=== PATIENT | male | born 1960 | race Caucasian/White ===

== ENCOUNTER 2024-03-30 10:54 | Observation (INO) ==
[2024-03-30] MEDS ORDERED: FLUTICASONE/VILANTEROL 100/25MCG 14 PUFFS/INHALER INH PRN (17:33)
[2024-03-30] MEDS ORDERED: ALBUTEROL HFA 8 GM INHALER INH PRN (17:33)
--- NOTE | 2024-03-30 18:06 | History & Physical Report ---
Date of Service March 30, 2024 Assessment & Plan (1) Recurrent fever: Plan: Admit to [facility] Currently stable nontoxic-appearing Patient was transferred to our facility from [facility] ED after he presented to their facility this a.m. (03/30/2024) due to recurrent fevers while still receiving IV vancomycin/Zosyn for recently VRE UTI Limited workup at the [place] ED today but reportedly his UA was concerning for recurrent UTI Patient was reportedly tested for COVID 19 at the [place] ED and was negative, will obtain for respiratory BioFire now as he has been at a SNF No recent respiratory or GI symptoms No signs of infected skin wound/cellulitis Patient had been improving clinically for his recently diagnosed VRE bacteremia during his admission at [facility] from /, ID had been involved during this admission and I recommended completing his course of Zosyn/vancomycin through 03/31/2024 and then reportedly completing a 7-day course of Macrobid. Confirmed with the patient's that the patient had been receiving his courses of vancomycin/Zosyn up until this a.m. when he started to have fevers Review of reports from the [place] ED prior to transfer shows the patient receiving a dose of Zosyn and vancomycin approximately 0730 this a.m. Will obtain baseline infectious workup at this time including CBC, CMP, lactate, repeat UA, repeat blood culture, PSA, PT/INR, chest x-ray, MRSA nasal swab, and full respiratory BioFire Will wait for initial workup to consider repeat imaging of his abdomen/pelvis as he is currently stable, nontoxic-appearing, and asymptomatic Will wait for CMP to result to confirm renal function is stable, if so, we will continue his course of Zosyn/vancomycin with last doses on 03/30/2024 Will start bilateral JULIA stockings for DVT prophylaxis until labs are back and we will then start chemical DVT prophylaxis Heart healthy/DM type II diet with aspiration precautions AM CBC, CMP, mag, PT/INR (2) BPH w urinary obs/LUTS: Plan: Status post Rezum procedure with Dr. Greene on 03/10/2024 Has required subsequent chronic indwelling Reed since Continue current Reed catheter and follow repeat UA with reflex urine culture/blood cultures Continue alpha Zosyn and finasteride Will wait for complete workup but can consult urology to continue following if needed during this admission (3) History of infection with vancomycin resistant Enterococcus (VRE): Plan: See scanned discharge summary of admission to [facility] from 03/23/2024 - 03/28/2024 for full details Patient has been on vancomycin/Zosyn with an end date of 03/31/2024 per infectious disease with plan to then complete a course of Macrobid for 7 days While patient's urine culture grew VRE, the discharge summary explains that this could have been colonization and that the patient was significantly improving on vancomycin/Zosyn which is why infectious disease recommended continue with his regimen Follow repeat infectious workup obtained at time of admission As long as admission labs allow, we will plan to continue vancomycin/Zosyn through 03/31/2024 Based on workup and clinical stability can then start p.o. Macrobid if this still seems reasonable (4) Stroke: Plan: Continue aspirin, Plavix, Will order [id number] mattress, heel precautions, acute 2-hour turn/position due to left-sided hemiparesis Will continue home 4 times daily baclofen with stat dose now as he missed his afternoon dose Continue gabapentin (5) COPD (chronic obstructive pulmonary disease): Plan: Currently stable on room air without signs of wheezing on exam Incentive spirometry, continue home albuterol and Trelegy Ellipta As needed O2 to keep SpO2 between 89-92%, patient and confirmed that the patient does have diagnosis of RHIANNON but has been unable to tolerate at bedtime CPAP in the past so may become hypoxic at night (6) Hypertension: Plan: Currently stable Continue home diltiazem (7) Seizure-like activity: Plan: Patient is confirmed that he has not had recent seizure-like activity Continue Lamictal (8) Diabetes mellitus type 2, controlled: Plan: Patient's explains that the patient's initial diagnosis for diabetes mellitus was done while he was on systemic steroids Has not required insulin and was reportedly taken off of metformin after he completed his course of steroids Patient remains on Jardiance for his heart per patient and For now monitor BSG ACHS, goal is [id number] Will start CF of 50 ACHS for now Adjust regimen as needed Plan The patient was discussed with Dr. Cruz at the time of the admission Admission and Anticipated Discharge Date Admission Date: March 30, 2024 History of Present Illness Chief Complaint: Recurrent fever Primary Care Provider: Celina Elizondo DO Gallegos is a 64-year-old male with a past medical history significant for COPD, prior CVA with left-sided hemiparesis, seizure disorder, DM type II, GERD, hypertension, hyperlipidemia, and BPH status post Rezum procedure with Dr. Greene on 03/10/2024 who was transferred to our facility from [facility] emergency department due to recurrent fever and UTI while on IV antibiotics at his SNF. Patient was recently admitted to [facility] from 03/23/24 - 03/28 04/05 after being discharged from the same hospital on 03/17/2024 due to sepsis/UTI after his recent Rezum procedure with Dr. Greene. During his most recent admission to [facility] the patient grew VRE on urine cultures with negative blood cultures. CT abdomen pelvis shows signs of possible sterile coral colitis but was otherwise negative for acute findings. CT of the chest was without acute changes. The patient had been started on Zosyn/vancomycin at the time of admission on 03/23/2024. Infectious disease was consulted and recommended continuing the patient on Zosyn/vancomycin through 03/31/2024 as he was reportedly improving on this combination. The patient continued to improve while on Zosyn/vancomycin and was discharged to [facility] on 03/28/2024. Infectious disease reportedly recommended the patient completed 7-day course of Macrobid after he completed his course of IV antibiotics. He presented back to the [facility] emergency department on 03/30/2024 from his SNF due to concerns for recurrent fevers. Per the transfer documentation, patient was noted to have signs of a recurrent UTI. Admission the patient was lying in bed no acute distress at this time sitting bedside, history is obtained from both. His explains that the patient has continued his IV antibiotics at SNF. Early this a.m. he had multiple fevers ranging from [id number] which is why he was sent to the ED. When asked, patient states that he has otherwise felt fine. Denies recent headaches, chest pain, shortness of breath, cough, abdominal pain, nausea/vomiting, diarrhea. When asked, his states that the patient has 2 small areas of skin breakdown on his sacrum but is otherwise without signs of recent wounds. Patient missed the majority of his a.m. and after medications but his was able to get him his noon dose of diltiazem and gabapentin. We discussed CODE STATUS, the patient is a full code and his is his primary decision-maker if he cannot make decisions himself. Please refer to Dr. Cruz's attestation for any changes to treatment plan Allergies Allergy/AdvReac Type Severity Reaction Status Date / Time Sulfa (Sulfonamide Allergy Unknown Hives Verified 03/10/24 10:17 Antibiotics) Home Medications Medication Instructions Recorded Confirmed Type acetaminophen 325 mg capsule 325 mg PO QID PRN Pain 11/20/23 03/30/24 History (Tylenol) albuterol sulfate 90 mcg/actuation 1 inh inhalation QID PRN SOB 11/20/23 03/30/24 History aerosol inhaler (Ventolin HFA) alfuzosin 10 mg tablet,extended 10 mg PO QAM 11/20/23 03/30/24 History release 24 hr ascorbic acid (vitamin C) 250 mg 250 mg PO QPM 11/20/23 03/30/24 History tablet aspirin 81 mg tablet,delayed 81 mg PO QAM 11/20/23 03/30/24 History release (Adult Aspirin Regimen) atorvastatin 40 mg tablet 40 mg PO QPM 11/20/23 03/30/24 History azelastine 137 mcg (0.1 %) nasal 1 spray intranasal BID 11/20/23 03/30/24 History spray baclofen 10 mg tablet 10 mg PO QID 11/20/23 03/30/24 History cholecalciferol (vitamin D3) 125 125 mcg PO QPM 11/20/23 03/30/24 History mcg (5,000 unit) capsule clopidogrel 75 mg tablet (Plavix) 75 mg PO QPM 11/20/23 03/30/24 History diltiazem HCl 30 mg tablet 30 mg PO QID 11/20/23 03/30/24 History empagliflozin 10 mg tablet 10 mg PO QAM heart 11/20/23 03/30/24 History (Jardiance) ferrous gluconate 324 mg (37.5 mg 324 mg PO Q2D 11/20/23 03/30/24 History iron) tablet finasteride 5 mg tablet 5 mg PO QAM 11/20/23 03/30/24 History fluticasone furoate 100 1 inh inhalation UD PRN SOB 11/20/23 03/30/24 History mcg-vilanterol 25 mcg/dose inhalation powder (Breo Ellipta) fluticasone propionate 50 1 spray intranasal DAILY 11/20/23 03/30/24 History mcg/actuation nasal spray,suspension folic acid 1 mg tablet 1 mg PO QPM 11/20/23 03/30/24 History ipratropium bromide 21 mcg (0.03 2 spray intranasal BID PRN 11/20/23 03/30/24 History %) nasal spray Congestion ketoconazole 2 % topical cream 1 applic topical DAILY PRN Skin 11/20/23 03/30/24 History Irritation loratadine 10 mg tablet (Claritin) 10 mg PO QAM 11/20/23 03/30/24 History melatonin 5 mg capsule 5 mg PO HS 11/20/23 03/30/24 History multivitamin 1 tab PO QAM 11/20/23 03/30/24 History pantoprazole 40 mg tablet,delayed 40 mg PO QAM 11/20/23 03/30/24 History release ropinirole 0.5 mg tablet 1 mg PO HS 11/20/23 03/30/24 History thiamine HCl (vitamin B1) 50 mg 50 mg PO HS 11/20/23 03/30/24 History tablet (Vitamin B-1) famotidine 40 mg tablet 40 mg PO HS 03/03/24 03/30/24 History formoterol fumarate 20 mcg/2 mL 2 ml inhalation QAM 03/03/24 03/30/24 History solution for nebulization gabapentin 400 mg capsule 400 mg PO UD 03/03/24 03/30/24 History lamotrigine 25 mg tablet 50 mg PO BID 03/03/24 03/30/24 History magnesium 250 mg tablet 250 mg PO QPM 03/03/24 03/30/24 History potassium chloride 30 mEq/15 mL 30 meq PO QAM 03/03/24 03/30/24 History oral liquid oxybutynin chloride 5 mg tablet 5 mg PO Q8H PRN bladder spasms #20 03/10/24 03/30/24 Rx tabs phenazopyridine 200 mg tablet 200 mg PO Q8H PRN pain #10 tabs 03/10/24 03/30/24 Rx (Pyridium) Past Med/Surg History Problem List (Updated 03/30/24 @ 18:41 by Delvin Diop PA-C) History of infection with vancomycin resistant Enterococcus (VRE) Recurrent fever Dysuria BPH w urinary obs/LUTS Medical History (Updated 03/30/24 @ 18:41 by Delvin Diop PA-C) VRE bacteremia Diabetes mellitus type 2, controlled Seizure-like activity reason for lamictal, occurred 10/11/22 first time, "seems to get about every 3 months, most recent 01/07/24 that is when he was put on the lamictal"; f/u neuro/stroke team at [facility] every 4-5 months Neuropathy Chronic anticoagulation RLS (restless legs syndrome) Hypertension Hx of difficult intubation "many years ago at [facility] with 1 of his shoulder surgeries, has had no trouble since then" BPH w urinary obs/LUTS GERD (gastroesophageal reflux disease) getting EGD 03/07/24, at [facility] Hx of polycythemia vera ~2013, "had procedure to water down his blood" Stroke 04/01/22, dysphagia, cannot move left arm, left leg weakness, diaphragm weakness, loss vision left eye COPD (chronic obstructive pulmonary disease) Surgical History Hx of brain surgery 2021, craniectomy, formerly [facility] Hx of craniotomy 2021, [facility] Hx of colonoscopy Hx of arthroscopy of shoulder x2, left Hx of rotator cuff surgery left, open procedure Hx of cervical spine surgery in the early ; ROM "is a little limited since stroke but was not limited prior to stroke from this sx" Hx of lumbosacral spine surgery late , L5 Hx of tonsillectomy Social History Smoking Status: Former smoker Second Hand Exposure: No; Do You Dip or Chew Tobacco: No; Tobacco Cessation Education Requested by Patient: No Hx Alcohol Use: No Hx Substance Use: No Preferred Language: Croatian Communication Ability: Effective Visual Impairment: Limited Manager Hris Required: No Beliefs That Will Affect Care: None Current Living Situation: Rehab Current Living Situation Comment: Was from home living with then had the REZUM procedure then to Rehab Other Information That Helps Us Care for You: No Feels Safe at Home: Yes Safety Concerns: Feels Safe At This Time Assistive Devices: Cane, CPAP and Wheelchair Assistive Devices Comment: Unable to tolerate CPAP Physical Exam 2 Constitutional: Physical Exam: General: In no acute distress, stated age, chronically ill-appearing but nontoxic HEENT: Previous traumatic injury site to the right skull without signs of acute trauma, no scleral icterus, pupils around round, symmetrical, and reactive to light, dry mucus membranes, trachea midline, no thyromegaly Chest/Pulm: No respiratory distress, symmetrical chest expansion, clear breath sounds throughout Cardiac: RRR, no murmurs noted Abdomen: Negative for ascites and bruising, normoactive bowel sounds, soft, non-tender to palpation throughout : Reed catheter is currently in place and draining clear, yellow urine Musculoskeletal: No acute trauma on exam, baseline left-sided from previous CVA Extremities: Radial, dorsalis pedis, and posterior tibial pulses are intact and symmetrical, no edema noted in the BL LE's Skin: See attached picture below for details of pressure ulcers of the buttocks Neuro: Alert and oriented to person, place, month, year, and president, baseline left hemiparesis noted, no tremors noted Psych: No acute distress, calm and cooperative during the exam Results & Data Results & Data Vital Signs (Past 12 Hours) Vital Signs Temp Pulse Resp BP Pulse Ox O2 Del Method 03/30/24 16:46 36.8 C 78 20 149/74 H 95 Room Air Laboratory Results Abnormal lab results 03/30/24 Range/Units 17:37 RBC 4.62 L (4.70-6.10) M/uL Lymph # (Auto) 0.79 L (1.20-3.40) K/uL [place] # (Auto) 0.80 H (0.11-0.59) K/uL Eos # (Auto) 0.59 H (0.00-0.50) K/uL Code Status & VTE Plan Code Status Full code VTE Prophylaxis Plan VTE Prophylaxis will be ordered: Yes Supervising Physician Co-Signing Physician Notes I personally saw and examined the patient. I verified all youngblood points and agree with Delvin Diop PA-C with the following exceptions and/or additions: 64 year old male direct transfer for recurrent fevers. Currently on Vancomycin and Zosyn for VRE and presumably something else in urine culture although not currently known as unclear why he was discharged on vancomycin but case was discussed with ID per discharge summary. The patient has no current acute complaints when seen. O/E HS RRR, no murmurs, Chest CTAB, Abdomen SNT, no CVA tenderness, minimal movements on LLE and no movement of LUE due to prior stroke A/P Recurrent fevers - will continue vancomycin + Zosyn for now although unclear why he is on vancomycin with urine culture growing VRE and no other culture mentioned on discharge summary to warrant vancomycin. Microbiology results requested from transferring institution. Repeat urine and blood cultures ordered. Otherwise as above PG Care Time/CCT Total # of Minutes Spent Total Time Spent with Patient: Total time spent is greater than 50% in coordination of care (as documented) at patient's floor/unit and/or counseling patient: [place] [address] INT INP/OBS CARE 3/75MIN Patient Type New Medical Decision Making High Complexity Diagnoses Recurrent fever A68.9 BPH w urinary obs/LUTS N40.1; N13.8 History of infection with vancomycin resistant Enterococcus (VRE) Z86.19 Stroke I63.9 COPD (chronic obstructive pulmonary disease) J44.9 Hypertension I10 Seizure-like activity R56.9 Diabetes mellitus type 2, controlled E11.9
[2024-03-30] MEDS ORDERED: GLUCOSE 40% GEL 15 GM TUBE PO PRN (18:11)
[2024-03-30] MEDS ORDERED: CARBOHYDRATES FOR HYPOGLYCEMIA PO PRN (18:11)
[2024-03-30] MEDS ORDERED: GLUCOSE 10 TAB/TUBE PO PRN (18:11)
[2024-03-30] MEDS ORDERED: DEXTROSE 50% 50 ML SYRINGE IV PRN (18:11)
[2024-03-30] MEDS ORDERED: GLUCAGON FOR INJ 1 MG VIAL SQ PRN (18:11)
[2024-03-30 18:13] LABS: Basophils # (auto) 0.04 K/uL (0.00-0.20); Basophils % (auto) 0.7 %; Eosinophils # (auto) 0.59 K/uL (0.00-0.50); Eosinophils % (auto) 9.7 %; Hematocrit (blood only) 42.1 % (42.0-52.0); Hemoglobin 14.1 g/dl (14.0-18.0); Immature Granulocytes # (auto) 0.08 K/uL (0.01-0.20); Immature Granulocytes % (auto) 1.3 %; Lymphocytes # (auto) 0.79 K/uL (1.20-3.40); Mean Corpuscular Hemoglobin 30.5 pg (25.0-34.0); Mean Corpuscular Hgb Conc 33.5 g/dL (32.0-36.0); Mean Corpuscular Volume 91.1 fL (80.0-100.0); Mean Platelet Volume 10.2 fL (9.4-12.4); Monocytes % (auto) 13.1 %; Neutrophils % (auto) 62.2 %; Platelet Count 180 K/uL (130-400); RDW Coefficient of Variation 13.5 % (11.5-14.5); RDW Standard Deviation 44.8 fL (36.4-46.3); Red Blood Count 4.62 M/uL (4.70-6.10)
[2024-03-30 18:30] LABS: Albumin Globulin Ratio 1.5 (0.9-2); BUN Creatinine Ratio 14.3 (10-20); Calcium 9.2 mg/dl (8.6-10.3); Creatinine Clr Calc Pharmacy 93.9 ml/min; Est GFR (African American) 103.6 ml/min; Est GFR (Non-African American) 89.4 ml/min; Globulin 2.7 gm/dl (2.5-4.0); Potassium 3.5 mmol/L (3.5-5.1); Total Protein 6.7 gm/dl (6.0-8.3)
[2024-03-30 18:42] LABS: Prostate SpecificAg Diagnostic 0.133 ng/ml (0-4)
[2024-03-30 18:44] LABS: INR 1.1 (0.9-1.1); Prothrombin Time 11.8 Seconds (9.0-12.0)
[2024-03-30 19:00] LABS: Appearance Urine Clear (Clear); Bilirubin Urine Negative (Negative); Blood Urine 3+ (Negative); Color Urine Yellow; Glucose Urine UA 3+ (Negative); Ketones Urine Negative (Negative); Leukocyte Esterase Urine Trace (Negative); Nitrite Urine Negative (Negative); Protein Urine 1+ (Negative); Specific Gravity Urine >= 1.030 (1.000-1.030); Urobilinogen Urine Negative (Negative); pH Urine 5.5 (4.5-7.5)
[2024-03-30 19:10] LABS: Bacteria Urine 1+ (None Seen); Epithelial Cell Urine 0-2 /hpf (0-2)
[2024-03-30 19:11] LABS: Hyaline Casts Urine Present /lpf (None Presnt); Mucus Urine Present (None Prsent)
[2024-03-30] MEDS: lamoTRIgine 25 MG TAB PO STA (20:21)
[2024-03-30] MEDS: BACLOFEN 10 MG TAB PO SCH (20:22)
[2024-03-30] MEDS: GABAPENTIN 600 MG TAB PO SCH (20:22)
[2024-03-30] MEDS: CHOLECALCIFEROL 125 MCG (5,000 UNITS) TAB PO SCH (20:22)
[2024-03-30] MEDS: BACLOFEN 10 MG TAB PO STA (20:22)
[2024-03-30] MEDS: rOPINIRole HCL 1 MG TABLET PO SCH (20:22)
[2024-03-30] MEDS: CLOPIDOGREL BISULFATE 75 MG TAB PO SCH (20:23)
[2024-03-30] MEDS: ASCORBIC ACID 500 MG TAB PO SCH (20:23)
[2024-03-30] MEDS: MELATONIN 3 MG TAB PO SCH (20:24)
[2024-03-30] MEDS: ASPIRIN 81 MG CHEW PO STA (20:24)
[2024-03-30] MEDS: FOLIC ACID 1 MG TAB PO SCH (20:24)
[2024-03-30] MEDS: dilTIAZem HCL 30 MG TAB PO SCH (20:24)
[2024-03-30] MEDS: FAMOTIDINE 40 MG TABLET PO SCH (20:24)
[2024-03-30] MEDS: ATORVASTATIN 40 MG TAB PO SCH (20:25)
[2024-03-30] MEDS ORDERED: VANCOMYCIN CONSULT ACTIVE PRN (20:38)
[2024-03-30] MEDS ORDERED: lamoTRIgine 25 MG TAB PO SCH (21:00)
[2024-03-30 21:27] LABS: Adenovirus PCR Not Detected (NotDetected); Bordetella parapertussis PCR Not Detected (NotDetected); Bordetella pertussis PCR Not Detected (NotDetected); Chlamydia pneumoniae PCR Not Detected (NotDetected); Coronavirus 229E PCR Not Detected (NotDetected); Coronavirus CoV-2 (COVID19)PCR Not Detected (NotDetected); Coronavirus HKU1 PCR Not Detected (NotDetected); Coronavirus NL63 PCR Not Detected (NotDetected); Coronavirus OC43PCR Not Detected (NotDetected); Human Metapneumovirus PCR Not Detected (NotDetected); Influenza A PCR Not Detected (NotDetected); Influenza B PCR Not Detected (NotDetected); Mycoplasma pneumoniae PCR Not Detected (NotDetected); Parainfluenza Virus 1 PCR Not Detected (NotDetected); Parainfluenza Virus 2 PCR Not Detected (NotDetected); Parainfluenza Virus 3 PCR Not Detected (NotDetected); Parainfluenza Virus 4 PCR Not Detected (NotDetected); Respiratory Syncytial VirusPCR Not Detected (NotDetected); Rhinovirus/Enterovirus PCR Not Detected (NotDetected)
[2024-03-30] MEDS: INSULIN ASPART PER UNIT CHARGE SC SCH (22:01)
[2024-03-30] MEDS: PIPERACILLIN/TAZOBACTAM 4.5 GM/100 ML BAG IV ONE (22:46)
[2024-03-30] MEDS: VANCOMYCIN HCL 2,000 MG in SODIUM CHLORIDE 0.9% 500 ML IV ONE (23:19)
[2024-03-31] MEDS: PIPERACILLIN/TAZOBACTAM 4.5 GM/100 ML BAG IV SCH (04:22)
[2024-03-31 05:56] LABS: Basophils # (auto) 0.03 K/uL (0.00-0.20); Basophils % (auto) 0.4 %; Eosinophils # (auto) 0.36 K/uL (0.00-0.50); Eosinophils % (auto) 4.4 %; Hemoglobin 14.3 g/dl (14.0-18.0); Immature Granulocytes # (auto) 0.05 K/uL (0.01-0.20); Immature Granulocytes % (auto) 0.6 %; Lymphocytes # (auto) 0.44 K/uL (1.20-3.40); Lymphocytes % (auto) 5.3 %; Mean Corpuscular Hemoglobin 31.1 pg (25.0-34.0); Mean Corpuscular Hgb Conc 34.9 g/dL (32.0-36.0); Mean Corpuscular Volume 89.1 fL (80.0-100.0); Mean Platelet Volume 10.2 fL (9.4-12.4); Monocytes # (auto) 0.53 K/uL (0.11-0.59); Monocytes % (auto) 6.4 %; Neutrophils # (auto) 6.86 K/uL (1.40-6.50); Neutrophils % (auto) 82.9 %; Platelet Count 156 K/uL (130-400); RDW Coefficient of Variation 13.2 % (11.5-14.5); White Blood Count 8.27 K/ul (4.8-10.8)
[2024-03-31 06:08] LABS: Albumin Globulin Ratio 1.4 (0.9-2); Albumin Level 3.7 gm/dl (3.4-5.0); BUN Creatinine Ratio 10.1 (10-20); Bilirubin,Total 1.2 mg/dl (0.2-1.0); Calcium 8.6 mg/dl (8.6-10.3); Creatinine Clr Calc Pharmacy 86.3 ml/min; Est GFR (African American) 93.6 ml/min; Est GFR (Non-African American) 80.7 ml/min; Globulin 2.7 gm/dl (2.5-4.0); Magnesium 1.7 mg/dl (1.7-2.4); Potassium 3.4 mmol/L (3.5-5.1); Total Protein 6.4 gm/dl (6.0-8.3)
[2024-03-31 06:22] LABS: INR 1.2 (0.9-1.1); Prothrombin Time 12.4 Seconds (9.0-12.0)
--- NOTE | 2024-03-31 07:07 | XRay Report ---
XR chest 1V portable CLINICAL HISTORY: Fevers. COMPARISON STUDY: Chest radiograph performed earlier today. FINDINGS: Postoperative findings within the cervical spine are incidentally noted. Lung volumes are m ildly diminished. Mild bibasilar opacities have developed. There is mild interstitial thickening. Pat ient is rotated. No pleural effusion or pneumothorax. IMPRESSION: 1. Bibasilar opacities which could reflect pneumonia or atelectasis. 2. Pleural vascular congestion with suspected mild pulmonary edema. ACT 112: Negative or not required by law. Electronically signed by: Ranulfo Soto M.D. 03/31/2024 7:06 AM
[2024-03-31] MEDS: ACETAMINOPHEN 325 MG TAB PO PRN (07:26)
[2024-03-31] MEDS: ASCORBIC ACID 500 MG TAB PO SCH (08:09)
[2024-03-31] MEDS: PANTOprazole 40 MG TAB PO SCH (08:10)
[2024-03-31] MEDS: GABAPENTIN 400 MG CAP PO SCH (08:10)
[2024-03-31] MEDS: TAMSULOSIN HCL 0.4 MG CAP PO SCH (08:10)
[2024-03-31] MEDS: FERROUS GLUCONATE 324 MG TAB PO SCH (08:11)
[2024-03-31] MEDS: FINASTERIDE 5 MG TAB PO SCH (08:12)
[2024-03-31] MEDS ORDERED: EMPAGLIFLOZIN 10 MG TAB PO SCH (09:00)
--- NOTE | 2024-03-31 09:21 | Hospitalist Progress Note ---
Date of Service March 31, 2024 Assessment & Plan (1) Recurrent fever: Plan: 64 y/o who underwent REZUM procedure for BPH with LUTS on 03/[address] Greene. Following that he has had recurrent fevers treated at [facility]. This started 03/16 with fevers chills and malaise, temp reported up to [address] max [address]BC 18. CT chest/abdomen/pelvis notable for cystitis, postoperative changes, stercoral colitis. He had urine culture positive for VRE sensitive to macrobid. He was treated for UTI with 7 days pip-tazo and vancomycin (started 03/24 so 7th day would have been today) and seemed to improve. ID consulted and since he was improving and VRE might have been colonizer rather than pathogen, recommended finishing the 7d course of IV then 7d oral macrobid. He was discharged to SNF. Yesterday presented again to local ED with fever 101.6, flu/covid CXR neg, W7, BMP unremarkable, UA with pyuria did have tapia in place. On transfer here, similar data and resp biofire negative. Continued on pip-tazo and vancomycin at time of admission. febrile overnight and Tmax today around noon was 38.2. remains nontoxic with respect to labs and vital signs however, normal mental status Suspect untreated VRE could be the issue (vs non-urological source of fever - consider aspiration pneumonitis, drug fever) -stop pip-tazo and vancomycin since these do not seem to be treating anything specific at this time -start daptomycin to cover VRE. discussed with clinical pharmacist. hold statin while on daptomycin -await repeat blood and urine cultures (correction to H&P - did NOT have VRE bacteremia, previous blood cultures have been negative) -reviewed outside records - discharge summary from [facility] -discussed with Dr. Greene - will see - urine culture pinpoint growth, blood culture pending. Will repeat blood culture if febrile at greater than 24 hours after previous culture (2) BPH w urinary obs/LUTS: Plan: Status post Rezum procedure with Dr. Greene on 03/10/2024 Has required tapia since Continue alfluzosin and finasteride Unclear when he had a voiding trial, but would be appropriate to do soon (3) History of infection with vancomycin resistant Enterococcus (VRE): Plan: see above (4) Stroke: Plan: History of stroke and crani with L hemiparesis - neurologically is at baseline Continue aspirin, Plavix, stain held while on dapto ow-air-loss mattress, heel precautions, acute 2-hour turn/position due to left-sided hemiparesis continue baclofen Continue gabapentin (5) COPD (chronic obstructive pulmonary disease): Plan: Currently stable on room air without signs of wheezing on exam Incentive spirometry, continue home albuterol and Trelegy Ellipta As needed O2 to keep SpO2 between 89-92%, patient and confirmed that the patient does have diagnosis of RHIANNON but has been unable to tolerate at bedtime CPAP in the past so may become hypoxic at night (6) Hypertension: Plan: Currently stable Continue home diltiazem (7) Seizure-like activity: Plan: Patient is confirmed that he has not had recent seizure-like activity Continue Lamictal (8) Diabetes mellitus type 2, controlled: Plan: Patient's explains that the patient's initial diagnosis for diabetes mellitus was done while he was on systemic steroids Has not required insulin and was reportedly taken off of metformin after he completed his course of steroids Patient remains on Jardiance for his heart per patient and continue premeal insulin PRN blood glucose at goal 03/31 all checks less than 150 Plan DVT prophylaxis - already on aspirin and Plavix so will use low-dose subcu heparin twice daily PT and OT eval's. Recently at [facility] I updated his at bedside today Admission and Anticipated Discharge Date Admission Date: March 30, 2024 Subjective El is definitely feeling fatigued and having sweats and chills today, he has some redness of his face and upper trunk slight very faint macular rash over shoulders he denied any abdominal pain or bladder pain except when the Tapia is being tugged occasionally he did have some tenderness with deep palpation in the left lower quadrant no coughing or shortness of breath, no chest pain no joint problems usually can flex his left leg but left upper extremity has no strength, strength is currently at his baseline Physical Exam 2 Physical Exam: PHYSICAL EXAMINATION Last 24h vital signs reviewed, see documentation in flowsheet General: lying in bed mildly ill-appearing HEENT: Normocephalic, atraumatic, pupils round and equal, sclerae anicteric, no conjunctival injection, moist mucus membranes. face is a bit alvin/flushed, some mild sweating currently Lungs: Normal respiratory effort. Clear to auscultation bilaterally. No RRW Heart: Regular rate and rhythm, no murmurs. No JVD Abdomen: Soft, nondistended. mildly tender to deep palpation left lower quadrant without rebound rigidity or guarding Bowel sounds present. Extremities: Warm, dry, well-perfused. No extremity edema. : Tapia catheter draining clear yellow urine Neuro: Alert and oriented x 4, face symmetric, left-sided weakness with 0 out of 5 strength left upper extremity, 34 out of 5 strength left lower extremity Psych: Normal affect and behavior Results & Data Results & Data Vital Signs (Past 12 Hours) Vital Signs Temp Pulse Resp BP Pulse Ox O2 Del Method 03/31/24 07:39 37 C 03/31/24 07:11 38.1 C H 106 H 18 127/70 91 Room Air 03/31/24 04:18 36.8 C Laboratory Results 03/31/24 05:34 03/31/24 05:34 respiratory bio fire was negative PSA was low MRSA nares was negative INR was 1.2 PG Care Time/CCT Total # of Minutes Spent Total Time Spent with Patient: Total time spent is greater than 50% in coordination of care (as documented) at patient's floor/unit and/or counseling patient: Coding Level of Care Code 73740 SUB INP/OBS CARE 3/50MIN Diagnoses Recurrent fever A68.9 BPH w urinary obs/LUTS N40.1; N13.8 History of infection with vancomycin resistant Enterococcus (VRE) Z86.19 Stroke I63.9 COPD (chronic obstructive pulmonary disease) J44.9 Hypertension I10 Seizure-like activity R56.9 Diabetes mellitus type 2, controlled E11.9
[2024-03-31] MEDS: VANCOMYCIN HCL 1,250 MG in SODIUM CHLORIDE 0.9% 250 ML IV SCH (09:29)
[2024-03-31] MEDS: ASPIRIN 81 MG ECTAB PO SCH (10:09)
[2024-03-31] MEDS: DAPTOmycin 650 MG in SYRINGE 0 ML IV SCH (10:47)
[2024-03-31] MEDS: LACTATED RINGER'S 1,000 ML IV SCH (10:56)
--- NOTE | 2024-03-31 12:07 | Electrocardiogram Report ---
Test Reason : Blood Pressure : */* mmHG Vent. Rate : 82 BPM Atrial Rate : 82 BPM P-R Int : 176 ms QRS Dur : 94 ms QT Int : 386 ms P-R-T Axes : 39 6 44 degrees QTcB Int : 450 ms Normal sinus rhythm Low voltage QRS Borderline ECG No previous ECGs available Confirmed by Enrike Mcnamara ([id number]) on 03/31/2024 12:07:09 PM Referred By: Breanna Syed Confirmed By: Enrike Mcnamara
--- NOTE | 2024-03-31 16:45 | Urology Consultation ---
<Statement entered by Crow Blancas MD - 04/01/24 07:36> I have discussed Mr. Lopez's case with LISHA Treadwell and agree with the above documentation. He remains hemodynamically stable. Would continue antibiotics. Can tailor antibiotic coverage as culture data becomes available. No plan for surgical intervention at this time. -Crow Blancas MD. Date of Consultation March 31, 2024 Assessment & Plan (1) Recurrent fever: (2) BPH w urinary obs/LUTS: Plan 64yo/M who is s/p Rezum on 03/10/24 w/Dr. Greene who was transferred to our facility from [facility] ED due to recurrent fevers while still receiving IV vancomycin/Zosyn for recent VRE UTI. Febrile today (Tmax 38.2C). Normotensive and not tachycardic at present. Labs reviewed- WBC 8.27, hemoglobin 14.3, creatinine 0.99 Urine and blood culture pending. Reed intact and draining yellow urine. CTAP 03/23/24 report from outside facility reviewed - Mild thickening of urinary bladder. 2 small air foci in its lumen, possible cystitis. No hydronephrosis. Prostate appeared unremarkable. No indication for urological intervention at this time. Antibiotics changed to Daptomycin for VRE coverage. Await repeat cultures. Continue supportive care. Maintain Reed catheter for now. Continue Flomax and Finasteride. If no improvement, can consider repeat imaging. Urology will follow. Please call with any questions/concerns. History of Present Illness Attending Physician: Breanna Syed MD History of Present Illness 64-year-old male with a hx of BPH s/p Rezum procedure with Dr. Greene on 03/10/2024 who was transferred to our facility from [facility] ED due to recurrent fever and UTI while on IV antibiotics at his SNF. Recent history obtained from chart review- Patient was admitted to [facility] from 03/23/24 - 03/28 04/05 due to sepsis/UTI after his recent Rezum procedure with Dr. Greene. During his most recent admission to [facility] the patient grew VRE on urine cultures with negative blood cultures. CT abdomen pelvis shows signs of possible stercoral colitis and cystitis but was otherwise negative for acute findings. The patient had been started on Zosyn/vancomycin at the time of admission on 03/23/2024. Infectious disease was consulted and recommended continuing the patient on Zosyn/vancomycin through 03/31/2024 as he was reportedly improving on this combination. The patient continued to improve while on Zosyn/vancomycin and was discharged to [facility] on 03/28/2024. Infectious disease reportedly recommended the patient completed 7-day course of Macrobid after he completed his course of IV antibiotics. He returned to [facility] emergency department on 03/30/2024 from his SNF due to concerns for recurrent fevers while on IV antibiotics. He was then transferred to our facility on 03/30/24 and is admitted to medicine service. Patient was seen at bedside today. Awake and resting in bed on arrival. No acute distress. at bedside. Patient/ report fevers and fatigue today. Reed intact and draining yellow urine. Allergies Allergy/AdvReac Type Severity Reaction Status Date / Time Sulfa (Sulfonamide Allergy Unknown Hives Verified 03/10/24 10:17 Antibiotics) Home Medications Medication Instructions Recorded Confirmed Type acetaminophen 325 mg capsule 325 mg PO QID PRN Pain 11/20/23 03/30/24 History (Tylenol) albuterol sulfate 90 mcg/actuation 1 inh inhalation QID PRN SOB 11/20/23 03/30/24 History aerosol inhaler (Ventolin HFA) alfuzosin 10 mg tablet,extended 10 mg PO QAM 11/20/23 03/30/24 History release 24 hr ascorbic acid (vitamin C) 250 mg 250 mg PO QPM 11/20/23 03/30/24 History tablet aspirin 81 mg tablet,delayed 81 mg PO QAM 11/20/23 03/30/24 History release (Adult Aspirin Regimen) atorvastatin 40 mg tablet 40 mg PO QPM 11/20/23 03/30/24 History azelastine 137 mcg (0.1 %) nasal 1 spray intranasal BID 11/20/23 03/30/24 His tory spray baclofen 10 mg tablet 10 mg PO QID 11/20/23 03/30/24 History cholecalciferol (vitamin D3) 125 125 mcg PO QPM 11/20/23 03/30/24 History mcg (5,000 unit) capsule clopidogrel 75 mg tablet (Plavix) 75 mg PO QPM 11/20/23 03/30/24 History diltiazem HCl 30 mg tablet 30 mg PO QID 11/20/23 03/30/24 History empagliflozin 10 mg tablet 10 mg PO QAM heart 11/20/23 03/30/24 History (Jardiance) ferrous gluconate 324 mg (37.5 mg 324 mg PO Q2D 11/20/23 03/30/24 History iron) tablet finasteride 5 mg tablet 5 mg PO QAM 11/20/23 03/30/24 History fluticasone furoate 100 1 inh inhalation UD PRN SOB 11/20/23 03/30/24 History mcg-vilanterol 25 mcg/dose inhalation powder (Breo Ellipta) fluticasone propionate 50 1 spray intranasal DAILY 11/20/23 03/30/24 History mcg/actuation nasal spray,suspension folic acid 1 mg tablet 1 mg PO QPM 11/20/23 03/30/24 History ipratropium bromide 21 mcg (0.03 2 spray intranasal BID PRN 11/20/23 03/30/24 History %) nasal spray Congestion ketoconazole 2 % topical cream 1 applic topical DAILY PRN Skin 11/20/23 03/30/24 History Irritation loratadine 10 mg tablet (Claritin) 10 mg PO QAM 11/20/23 03/30/24 History melatonin 5 mg capsule 5 mg PO HS 11/20/23 03/30/24 History multivitamin 1 tab PO QAM 11/20/23 03/30/24 History pantoprazole 40 mg tablet,delayed 40 mg PO QAM 11/20/23 03/30/24 History release ropinirole 0.5 mg tablet 1 mg PO HS 11/20/23 03/30/24 History thiamine HCl (vitamin B1) 50 mg 50 mg PO HS 11/20/23 03/30/24 History tablet (Vitamin B-1) famotidine 40 mg tablet 40 mg PO HS 03/03/24 03/30/24 History formoterol fumarate 20 mcg/2 mL 2 ml inhalation QAM 03/03/24 03/30/24 History solution for nebulization gabapentin 400 mg capsule 400 mg PO UD 03/03/24 03/30/24 History lamotrigine 25 mg tablet 50 mg PO BID 03/03/24 03/30/24 History magnesium 250 mg tablet 250 mg PO QPM 03/03/24 03/30/24 History potassium chloride 30 mEq/15 mL 30 meq PO QAM 03/03/24 03/30/24 History oral liquid oxybutynin chloride 5 mg tablet 5 mg PO Q8H PRN bladder spasms #20 03/10/24 03/30/24 Rx tabs phenazopyridine 200 mg tablet 200 mg PO Q8H PRN pain #10 tabs 03/10/24 03/30/24 Rx (Pyridium) Patient History Medical History (Updated 03/30/24 @ 18:41 by Delvin Diop PA-C) VRE bacteremia Diabetes mellitus type 2, controlled Seizure-like activity reason for lamictal, occurred 10/11/22 first time, "seems to get about every 3 months, most recent 01/07/24 that is when he was put on the lamictal"; f/u neuro/stroke team at [facility] every 4-5 months Neuropathy Chronic anticoagulation RLS (restless legs syndrome) Hypertension Hx of difficult intubation "many years ago at [facility] with 1 of his shoulder surgeries, has had no trouble since then" BPH w urinary obs/LUTS GERD (gastroesophageal reflux disease) getting EGD 03/07/24, at [facility] Hx of polycythemia vera ~2013, "had procedure to water down his blood" Stroke 04/01/22, dysphagia, cannot move left arm, left leg weakness, diaphragm weakness, loss vision left eye COPD (chronic obstructive pulmonary disease) Surgical History Hx of brain surgery 2021, craniectomy, [facility] Hx of craniotomy 2021, [facility] Hx of colonoscopy Hx of arthroscopy of shoulder x2, left Hx of rotator cuff surgery left, open procedure Hx of cervical spine surgery in the early s; ROM "is a little limited since stroke but was not limited prior to stroke from this sx" Hx of lumbosacral spine surgery late s, L5 Hx of tonsillectomy Social History Smoking Status: Former smoker Second Hand Exposure: No; Do You Dip or Chew Tobacco: No; Tobacco Cessation Education Requested by Patient: No Hx Alcohol Use: No Hx Substance Use: No Preferred Language: Urdu Communication Ability: Effective Visual Impairment: Limited Repaire[employer] Car Required: No Beliefs That Will Affect Care: None Current Living Situation: Rehab Current Living Situation Comment: Was from home living with then had the REZUM procedure then to Rehab Other Information That Helps Us Care for You: No Feels Safe at Home: Yes Safety Concerns: Feels Safe At This Time Assistive Devices: Stair Lift, Walker and Wheelchair Assistive Devices Comment: Unable to tolerate CPAP Review of Systems Review of Systems: All systems reviewed & are unremarkable except as noted in HPI & below Physical Exam Constitutional: + ill appearing; no acute distress Neck: normal visual inspection Respiratory: no respiratory distress and no labored breathing Musculoskeletal: Head/Neck/Chest: normocephalic Neurologic: awake Psychiatric: Orientation: alert and cooperative Genitourinary: Reed intact Results & Data Vital Signs (Past 12 Hours) Vital Signs Temp Pulse Resp BP Pulse Ox O2 Del Method 03/31/24 15:00 37.9 C H 90 18 112/67 93 Room Air 03/31/24 14:55 37.9 C H 94 H 20 113/66 93 Room Air 03/31/24 13:34 38 C H 105 H 22 114/67 90 Room Air 03/31/24 12:22 38.2 C H 03/31/24 07:39 37 C 03/31/24 07:35 Room Air 03/31/24 07:11 38.1 C H 106 H 18 127/70 91 Room Air PG Care Time/CCT Total # of Minutes Spent Total Time Spent with Patient: Total time spent is greater than 50% in coordination of care (as documented) at patient's floor/unit and/or counseling patient: Coding Level of Care Code 44343 IN/OBS CONSULT LVL 4,60M Diagnoses Recurrent fever A68.9 BPH w urinary obs/LUTS N40.1; N13.8
[2024-03-31] MEDS: lamoTRIgine 25 MG TAB PO SCH (21:16)
[2024-03-31] MEDS: HEPARIN SOD 5,000 UNIT/0.5 ML VIAL SQ SCH (21:16)
[2024-04-01 07:50] LABS: Basophils # (auto) 0.04 K/uL (0.00-0.20); Basophils % (auto) 0.7 %; Eosinophils # (auto) 0.51 K/uL (0.00-0.50); Eosinophils % (auto) 9.2 %; Hematocrit (blood only) 36.3 % (42.0-52.0); Hemoglobin 12.9 g/dl (14.0-18.0); Immature Granulocytes # (auto) 0.04 K/uL (0.01-0.20); Immature Granulocytes % (auto) 0.7 %; Lymphocytes # (auto) 1.09 K/uL (1.20-3.40); Lymphocytes % (auto) 19.7 %; Mean Corpuscular Hemoglobin 31.3 pg (25.0-34.0); Mean Corpuscular Hgb Conc 35.5 g/dL (32.0-36.0); Mean Corpuscular Volume 88.1 fL (80.0-100.0); Mean Platelet Volume 10.5 fL (9.4-12.4); Monocytes # (auto) 0.59 K/uL (0.11-0.59); Monocytes % (auto) 10.6 %; Neutrophils # (auto) 3.27 K/uL (1.40-6.50); Neutrophils % (auto) 59.1 %; Platelet Count 148 K/uL (130-400); RDW Coefficient of Variation 13.3 % (11.5-14.5); RDW Standard Deviation 43.2 fL (36.4-46.3); Red Blood Count 4.12 M/uL (4.70-6.10); White Blood Count 5.54 K/ul (4.8-10.8)
--- NOTE | 2024-04-01 08:41 | Urology Progress Note ---
Date of Service April 01, 2024 Assessment & Plan (1) Recurrent fever: (2) BPH w urinary obs/LUTS: Plan 64yo/M who is s/p Rezum on 03/10/24 w/Dr. Greene who was transferred to our facility from [facility] ED due to recurrent fevers while still receiving IV vancomycin/Zosyn for recent VRE UTI. Subjectively feeling much better today. Afebrile with stable vitals at present. (No documented fever since 03/31 @1500). Labs reviewed - No leukocytosis Urine culture pending; Blood cultures prelim no growth x 24 hours. Reed intact and draining yellow urine. CTAP 03/23/24 report from outside facility reviewed - Mild thickening of urinary bladder. 2 small air foci in its lumen, possible cystitis. No hydronephrosis. Prostate appeared unremarkable. No indication for urological intervention at this time. Antibiotics changed to Daptomycin for VRE coverage. Await repeat cultures. Continue supportive care. Maintain Reed catheter for now. Continue Flomax and Finasteride. If no improvement, can consider repeat imaging. Urology will follow along. Admission and Anticipated Discharge Date Admission Date: March 30, 2024 Subjective Patient seen at bedside today Awake and resting in bed on arrival No acute distress at bedside Overall feeling much better today No fever since yesterday evening Appetite is better today No reported pain Reed draining yellow urine Review of Systems Constitutional: as per Subjective / HPI Genitourinary: + as per Subjective / HPI Physical Exam Constitutional: no acute distress Neck: normal visual inspection Respiratory: no respiratory distress and no labored breathing Neurologic: awake Psychiatric: Orientation: alert and cooperative Genitourinary: Reed intact Results & Data Vital Signs (Past 12 Hours) Vital Signs Temp Pulse Resp BP Pulse Ox O2 Del Method 04/01/24 07:42 36.9 C 78 16 128/71 92 Room Air 04/01/24 05:50 36.6 C 04/01/24 02:37 37.2 C PG Care Time/CCT Total # of Minutes Spent Total Time Spent with Patient: Total time spent is greater than 50% in coordination of care (as documented) at patient's floor/unit and/or counseling patient: Coding Level of Care Code 17263 SUB INP/OBS CARE 2/35MIN Diagnoses Recurrent fever A68.9 BPH w urinary obs/LUTS N40.1; N13.8
--- NOTE | 2024-04-01 15:53 | Hospitalist Progress Note ---
Date of Service April 01, 2024 Assessment & Plan (1) Recurrent fever: Plan: 64 y/o who underwent REZUM procedure for BPH with LUTS on 03/[address] Greene. Following that he has had recurrent fevers treated at [facility]. This started 03/16 with fevers chills and malaise, temp reported up to 40 and max WBC 18. CT chest/abdomen/pelvis notable for cystitis, postoperative changes, stercoral colitis. He had urine culture positive for VRE sensitive to macrobid. He was treated for UTI with 7 days pip-tazo and vancomycin (started 03/24 so 7th day would have been today) and seemed to improve. ID consulted and since he was improving and VRE might have been colonizer rather than pathogen, recommended finishing the 7d course of IV then 7d oral macrobid. He was discharged to SNF. 03/30 presented again to local ED with fever 101.6, flu/covid, CXR neg, W7, BMP unremarkable, UA with pyuria did have tapia in place. On transfer here, similar data and resp biofire negative. Continued on pip-tazo and vancomycin at time of admission. On 03/31 stopped pip-tazo and vacomycin and started daptomycin to cover VRE. Remained febrile through afternoon of 03/31 but no fever overnight or today and feels much better -continue daptomycin to cover VRE which was only organism isolated from urine. our urine Cx with 5K GPC. blood cultures ngtd. Blood cultures from [facility] were negative -potentially improved because of treating the VRE, versus possibility of drug fever that is resolving -eventually can change to oral macrobid to complete total of 14d for postprocedural / catheter associated UTI If not continuing to improve, recurrent fever, or worsening LLQ pain then reimaging with abdominal CT would be indicated. (2) BPH w urinary obs/LUTS: Plan: Status post Rezum procedure with Dr. Greene on 03/10/2024 Has required tapia since Continue alfluzosin and finasteride Urology following (3) History of infection with vancomycin resistant Enterococcus (VRE): Plan: see above urine VRE was sensitive to macrobid (4) Stroke: Plan: History of remote stroke and crani with L hemiparesis - neurologically is at baseline Continue aspirin, Plavix, stain held while on dapto ow-air-loss mattress, heel precautions, acute 2-hour turn/position due to left-sided hemiparesis continue baclofen Continue gabapentin (5) COPD (chronic obstructive pulmonary disease): Plan: Currently stable on room air without signs of wheezing on exam Incentive spirometry, continue home albuterol and Trelegy Ellipta As needed O2 to keep SpO2 between 89-92%, patient and confirmed that the patient does have diagnosis of RHIANNON but has been unable to tolerate at bedtime CPAP in the past so may become hypoxic at night (6) Hypertension: Plan: Currently stable Continue home diltiazem (7) Seizure-like activity: Plan: no recent seizure-like activity Continue Lamictal (8) Diabetes mellitus type 2, controlled: Plan: Patient's explains that the patient's initial diagnosis for diabetes mellitus was done while he was on systemic steroids Has not required insulin and was reportedly taken off of metformin after he completed his course of steroids Patient remains on Jardiance for his heart per patient and continue premeal insulin PRN blood glucose at goal 04/01 Plan DVT prophylaxis - already on aspirin and Plavix so will use low-dose subcu heparin twice daily PT and OT eval's. Recently at [facility] At baseline can walk using hemiwalker I updated his at bedside 03/31, 04/01 Admission and Anticipated Discharge Date Admission Date: March 30, 2024 Subjective Feels much better today, much less malaise. No fever since yesterday afternoon Has itchy rash in stokes area Has faint maculopapular rash shoulders upper chest similar to yesterday this isnt itchy or painful No shortness of breath No abdominal pain, eating well, no NVD No bladder pain Physical Exam 2 Physical Exam: PHYSICAL EXAMINATION Last 24h vital signs reviewed, see documentation in flowsheet General: lying in appears much more well HEENT: Normocephalic, atraumatic, pupils round and equal, sclerae anicteric, no conjunctival injection, moist mucus membranes. face no longer flushed, erythematous rash with waxy/scaly patches well circumscribed on chin inferior to lip Skin: mild maculopapular rash shoulders, upper chest, not on abdomen Lungs: Normal respiratory effort. Clear to auscultation bilaterally. No RRW Heart: Regular rate and rhythm, no murmurs. No JVD Abdomen: Soft, nondistended. mildly tender to deep palpation left lower quadrant but less so than yesterday, no rrg, +BT Extremities: Warm, dry, well-perfused. No extremity edema. : Tapia catheter draining clear yellow urine Neuro: Alert and oriented x 4, face symmetric, left-sided weakness with 0 out of 5 strength left upper extremity, 34 out of 5 strength left lower extremity - at baseline Psych: Normal affect and behavior Results & Data Results & Data Vital Signs (Past 12 Hours) Vital Signs Temp Pulse Resp BP Pulse Ox O2 Del Method 04/01/24 12:52 79 109/68 94 Room Air 04/01/24 07:42 36.9 C 78 16 128/71 92 Room Air 04/01/24 05:50 36.6 C Laboratory Results 04/01/24 07:31 03/31/24 05:34 PG Care Time/CCT Total # of Minutes Spent Total Time Spent with Patient: Total time spent is greater than 50% in coordination of care (as documented) at patient's floor/unit and/or counseling patient: Coding Level of Care Code 05409 SUB INP/OBS CARE 2/35MIN Diagnoses Recurrent fever A68.9 BPH w urinary obs/LUTS N40.1; N13.8 History of infection with vancomycin resistant Enterococcus (VRE) Z86.19 Stroke I63.9 COPD (chronic obstructive pulmonary disease) J44.9 Hypertension I10 Seizure-like activity R56.9 Diabetes mellitus type 2, controlled E11.9
[2024-04-01] MEDS: oxyBUTYnin chloride 5 MG TAB PO PRN (19:55)
[2024-04-01] MEDS: HYDROCORTISONE 1% CRM 30 GM TUBE EXT SCH (19:57)
[2024-04-01] MEDS: THIAMINE HCL 50 MG TABLET PO SCH (20:12)
[2024-04-01] MEDS: MAGNESIUM OXIDE 400 MG TAB PO SCH (20:12)
[2024-04-01 20:36] VITALS: RESP 16
[2024-04-02 06:51] LABS: Basophils # (auto) 0.05 K/uL (0.00-0.20); Eosinophils % (auto) 11.6 %; Hematocrit (blood only) 35.6 % (42.0-52.0); Hemoglobin 12.8 g/dl (14.0-18.0); Immature Granulocytes # (auto) 0.02 K/uL (0.01-0.20); Immature Granulocytes % (auto) 0.4 %; Lymphocytes # (auto) 1.22 K/uL (1.20-3.40); Lymphocytes % (auto) 23.6 %; Mean Corpuscular Hemoglobin 31.4 pg (25.0-34.0); Mean Corpuscular Volume 87.3 fL (80.0-100.0); Mean Platelet Volume 10.5 fL (9.4-12.4); Monocytes # (auto) 0.52 K/uL (0.11-0.59); Monocytes % (auto) 10.1 %; Neutrophils # (auto) 2.75 K/uL (1.40-6.50); Neutrophils % (auto) 53.3 %; Platelet Count 147 K/uL (130-400); RDW Coefficient of Variation 13.1 % (11.5-14.5); RDW Standard Deviation 41.2 fL (36.4-46.3); Red Blood Count 4.08 M/uL (4.70-6.10); White Blood Count 5.16 K/ul (4.8-10.8)
[2024-04-02] MEDS: POTASSIUM CHLORIDE 10 MEQ TABCR PO SCH (09:33)
--- NOTE | 2024-04-02 09:48 | Urology Progress Note ---
Date of Service April 02, 2024 Assessment & Plan (1) Recurrent fever: (2) BPH w urinary obs/LUTS: Plan 64yo/M s/p Rezum on 03/10/24 w/Dr. Greene. No longer having breakthrough fevers since he has been transitioned to daptomycin. Repeat urine culture is preliminary positive with gram-positive cocci, final results pending. Blood cultures negative at 48 hours. He is improving appropriately with current antibiotic regimen. Would recommend following up on final culture results and narrowing coverage once more information is available. We will plan to maintain the Reed catheter for now. The plan for additional surgical intervention Urology will follow along. Admission and Anticipated Discharge Date Admission Date: March 30, 2024 Subjective No fevers or chills. Feeling much better than he did a couple days ago Reed catheter draining well, no clots or obstructions. He is not having any pain over the bladder. Urine culture preliminary positive for gram-positive cocci, remains on daptomycin Physical Exam Physical Exam: Seated in bed, NAD Reed catheter in place draining clear yellow urine Results & Data Vital Signs (Past 12 Hours) Vital Signs Temp Pulse Resp BP Pulse Ox O2 Del Method 04/02/24 07:33 37.0 C 74 16 103/63 95 Room Air PG Care Time/CCT Total # of Minutes Spent Total Time Spent with Patient: Total time spent is greater than 50% in coordination of care (as documented) at patient's floor/unit and/or counseling patient: Coding Level of Care Code 81297 SUB INP/OBS CARE 1/25MIN Diagnoses Recurrent fever A68.9 BPH w urinary obs/LUTS N40.1; N13.8
--- NOTE | 2024-04-02 13:18 | Hospitalist Progress Note ---
Date of Service April 02, 2024 Assessment & Plan (1) Recurrent fever: Plan: 64 y/o who underwent REZUM procedure for BPH with LUTS on 03/[address] rGeene. Following that he has had recurrent fevers treated at [facility]. This started 03/16 with fevers chills and malaise, temp reported up to [address] chest/abdomen/pelvis notable for cystitis, postoperative changes, stercoral colitis. He had urine culture positive for VRE sensitive to macrobid. He was treated for UTI with 7 days pip-tazo and vancomycin (started 03/24 so 7th day would have been today) and seemed to improve. ID consulted and since he was improving and VRE might have been colonizer rather than pathogen, recommended finishing the 7d course of IV then 7d oral macrobid. He was discharged to [facility]. 03/30 presented again to local ED with fever 101.6, flu/covid, CXR neg, W7, BMP unremarkable, UA with pyuria did have tapia in place. On transfer here, similar data and resp biofire negative. Continued on pip-tazo and vancomycin at time of admission. On 03/31 stopped pip-tazo and vacomycin and started daptomycin to cover VRE. Remained febrile through afternoon of 03/31 but since then no fever and feels much better -continue daptomycin to cover VRE which was only organism isolated from urine. our urine Cx with 5K GPC. blood cultures ngtd. Blood cultures from [facility] were negative -potentially improved because of treating the VRE, versus possibility of drug fever that resolved (did have mild rash on upper trunk that has resolved, slight increase in Eos) -day 2/7 daptomycin then oral macrobid to complete total of 14d for postprocedural / catheter associated UTI Mild LLQ tenderness present 03/31 has resolved on exam (2) BPH w urinary obs/LUTS: Plan: Status post Rezum procedure with Dr. Greene on 03/10/2024 Has required tapia since Continue alfluzosin and finasteride Urology following - his prefers voiding trial here rather than at [facility] - I told her I defer the timing on that to Urologist. Note yesterday says continue tapia at this time (3) History of infection with vancomycin resistant Enterococcus (VRE): Plan: see above urine VRE was sensitive to macrobid (4) Stroke: Plan: History of remote stroke and crani with L hemiparesis - neurologically is at baseline Continue aspirin, Plavix, stain held while on dapto ow-air-loss mattress, heel precautions, acute 2-hour turn/position due to left-sided hemiparesis continue baclofen Continue gabapentin (5) COPD (chronic obstructive pulmonary disease): Plan: Currently stable on room air without signs of wheezing on exam Incentive spirometry, continue home albuterol and Trelegy Ellipta As needed O2 to keep SpO2 between 89-92%, patient and confirmed that the patient does have diagnosis of RHIANNON but has been unable to tolerate at bedtime CPAP in the past so may become hypoxic at night (6) Hypertension: Plan: Currently normotensive Continue home diltiazem (7) Seizure-like activity: Plan: no recent seizure-like activity Continue Lamictal (8) Diabetes mellitus type 2, controlled: Plan: Patient's explains that the patient's initial diagnosis for diabetes indu litus was done while he was on systemic steroids Has not required insulin and was reportedly taken off of metformin after he completed his course of steroids Patient remains on Jardiance for his heart per patient and continue premeal insulin PRN blood glucose at goal 04/02 Plan Bilateral buttocks partial thickness wounds present on admission - continue wound care per WON recommendations DVT prophylaxis - already on aspirin and Plavix so will use low-dose subcu heparin twice daily PT and OT eval's. Recently at [facility] - plans to return there At baseline can walk using hemiwalker I updated his at bedside 03/31, 04/01, 04/02 Admission and Anticipated Discharge Date Admission Date: March 30, 2024 Physical Exam Physical Exam: PHYSICAL EXAMINATION Last 24h vital signs reviewed, see documentation in flowsheet General: lying in appears much more well HEENT: Normocephalic, atraumatic, pupils round and equal, sclerae anicteric, no conjunctival injection, moist mucus membranes. face no longer flushed, erythematous rash with waxy/scaly patches well circumscribed on chin inferior to lip Skin: mild maculopapular rash shoulders, upper chest, not on abdomen Lungs: Normal respiratory effort. Clear to auscultation bilaterally. No RRW Heart: Regular rate and rhythm, no murmurs. No JVD Abdomen: Soft, nondistended. mildly tender to deep palpation left lower quadrant but less so than yesterday, no rrg, +BT Extremities: Warm, dry, well-perfused. No extremity edema. : Tapia catheter draining clear yellow urine Neuro: Alert and oriented x 4, face symmetric, left-sided weakness with 0 out of 5 strength left upper extremity, 34 out of 5 strength left lower extremity - at baseline Psych: Normal affect and behavior Results & Data Results & Data Vital Signs (Past 12 Hours) Vital Signs Temp Pulse Resp BP Pulse Ox O2 Del Method 04/02/24 07:33 37.0 C 74 16 103/63 95 Room Air PG Care Time/CCT Total # of Minutes Spent Total Time Spent with Patient: Total time spent is greater than 50% in coordination of care (as documented) at patient's floor/unit and/or counseling patient: Coding Level of Care Code 10992 SUB INP/OBS CARE 2/35MIN Diagnoses Recurrent fever A68.9 BPH w urinary obs/LUTS N40.1; N13.8 History of infection with vancomycin resistant Enterococcus (VRE) Z86.19 Stroke I63.9 COPD (chronic obstructive pulmonary disease) J44.9 Hypertension I10 Seizure-like activity R56.9 Diabetes mellitus type 2, controlled E11.9
--- NOTE | 2024-04-03 10:13 | Urology Progress Note ---
Date of Service April 03, 2024 Assessment & Plan (1) Recurrent fever: (2) BPH w urinary obs/LUTS: Plan 64yo/M s/p Readan on 03/10/24 w/Dr. Greene. No longer having breakthrough fevers since he has been transitioned to daptomycin. Urine culture with gram- positive cocci, no sensitivities to follow. Blood cultures negative at 48 hours. Would recommend continuing daptomycin for approximately 1 week. If this can be done outpatient or at a rehab facility, I think this would be reasonable. No plan for acute surgical intervention at this time. Would recommend maintaining his Reed catheter until we can do a voiding trial in the office. Urology will follow along. Admission and Anticipated Discharge Date Admission Date: March 30, 2024 Subjective Feeling well, no fevers or chills, no nausea or vomiting. Tolerating a diet Working to spend time out of bed, but still feels deconditioned and planning to go back to rehab. Reed catheter draining well, no clots or obstructions. He is not having any pain over the bladder. Occasional blood around the catheter. Urine culture positive for gram-positive cocci, low colony counts, no sens itivities to follow. Remains on daptomycin. Physical Exam Physical Exam: Resting in bed, NAD Reed catheter in place draining clear yellow urine Minimal crusted blood around the urethral meatus. Results & Data Vital Signs (Past 12 Hours) Vital Signs Temp Pulse Resp BP Pulse Ox O2 Del Method 04/03/24 06:58 36.6 C 75 16 121/71 93 Room Air PG Care Time/CCT Total # of Minutes Spent Total Time Spent with Patient: Total time spent is greater than 50% in coordination of care (as documented) at patient's floor/unit and/or counseling patient: Coding Level of Care Code 39714 SUB INP/OBS CARE 1/25MIN Diagnoses Recurrent fever A68.9 BPH w urinary obs/LUTS N40.1; N13.8
--- NOTE | 2024-04-03 13:43 | Hospitalist Progress Note ---
Date of Service April 03, 2024 Assessment & Plan (1) Recurrent fever: Plan: 64 y/o who underwent REZUM procedure for BPH with LUTS on 03/[address] Greene. Following that he has had recurrent fevers treated at [facility]. This started 03/16 with fevers chills and malaise, temp reported up to 40 and max WBC 18. CT chest/abdomen/pelvis notable for cystitis, postoperative changes, stercoral colitis. He had urine culture positive for VRE sensitive to macrobid. He was treated for UTI with 7 days pip-tazo and vancomycin (started 03/24 so 7th day would have been today) and seemed to improve. ID consulted and since he was improving and VRE might have been colonizer rather than pathogen, recommended finishing the 7d course of IV then 7d oral macrobid. He was discharged to SNF. 03/30 presented again to local ED with fever 101.6, flu/covid, CXR neg, W7, BMP unremarkable, UA with pyuria did have tapia in place. On transfer here, similar data and resp biofire negative. Continued on pip-tazo and vancomycin at time of admission. On 03/31 stopped pip-tazo and vacomycin and started daptomycin to cover VRE. Remained febrile through afternoon of 03/31 but since then no fever and feels much better -continue daptomycin to cover VRE which was only organism isolated from urine. our urine Cx with 5K GPC. blood cultures ngtd. Blood cultures from [facility] were negative -potentially improved because of treating the VRE, versus possibility of drug fever that resolved (did have mild rash that has resolved, slight increase in Eos) -day 4/7 daptomycin then oral macrobid to complete total of 14d for postprocedural / catheter associated UTI Mild LLQ tenderness present 03/31 has resolved on exam 04/03 - fever and rash has resolved, will continue daptomycin (2) BPH w urinary obs/LUTS: Plan: Status post Rezum procedure with Dr. Greene on 03/10/2024 Has required tapia since Continue alfluzosin and finasteride Urology following - voiding trial in future (3) History of infection with vancomycin resistant Enterococcus (VRE): Plan: see above urine VRE was sensitive to macrobid (4) Stroke: Plan: History of remote stroke and crani with L hemiparesis - neurologically is at baseline Continue aspirin, Plavix, stain held while on dapto ow-air-loss mattress, heel precautions, acute 2-hour turn/position due to left-sided hemiparesis continue baclofen Continue gabapentin (5) COPD (chronic obstructive pulmonary disease): Plan: Currently stable on room air without signs of wheezing on exam Incentive spirometry, continue home albuterol and Trelegy Ellipta As needed O2 to keep SpO2 between 89-92%, patient and confirmed that the patient does have diagnosis of RHIANNON but has been unable to tolerate at bedtime CPAP in the past so may become hypoxic at night (6) Hypertension: Plan: Currently normotensive Continue home diltiazem (7) Seizure-like activity: Plan: no recent seizure-like activity Continue Lamictal (8) Diabetes mellitus type 2, controlled: Plan: Patient's explains that the patient's initial diagnosis for diabetes mellitus was done while he was on systemic steroids Has not required insulin and was reportedly taken off of metformin after he completed his course of steroids Patient remains on Jardiance for his heart per patient and continue premeal insulin PRN blood glucose at goal rev 04/03 Plan Bilateral buttocks partial thickness wounds present on admission - continue wound care per WON recommendations DVT prophylaxis - already on aspirin and Plavix so will use low-dose subcu heparin twice daily PT and OT eval's. Recently at [facility] - plans to return there At baseline can walk using hemiwalker I updated his at bedside 04/03 Admission and Anticipated Discharge Date Admission Date: March 30, 2024 Subjective Continuing to feel well today, no further fevers, residual rash seems to have faded off and evolved with petechial appearance on lower legs buttocks are sore, had wound nurse visit plans to get up in the wheelchair today Physical Exam 2 Physical Exam: PHYSICAL EXAMINATION Last 24h vital signs reviewed, see documentation in flowsheet General: awake lying in bed HEENT: Normocephalic, atraumatic, pupils round and equal, sclerae anicteric, no conjunctival injection, moist mucus membranes. face no longer flushed, erythematous rash with waxy/scaly patches well circumscribed on chin inferior to lip - seems improved Skin: rash on shoulders upper chest has resolved, has small petechia both lower extremities below the knee - this was more salmon-pink and warmer yesterday Lungs: Normal respiratory effort. Clear to auscultation bilaterally. No RRW Heart: Regular rate and rhythm, no murmurs. No JVD Abdomen: Soft, nondistended. nontender bowel tones are present Extremities: Warm, dry, well-perfused. No extremity edema. : Tapia catheter draining clear yellow urine Neuro: Alert and oriented x 4, face symmetric, left-sided weakness with 0 out of 5 strength left upper extremity, 34 out of 5 strength left lower extremity - at baseline Psych: Normal affect and behavior Results & Data Results & Data Vital Signs (Past 12 Hours) Vital Signs Temp Pulse Resp BP Pulse Ox O2 Del Method 04/03/24 08:45 Room Air 04/03/24 06:58 36.6 C 75 16 121/71 93 Room Air Laboratory Results 04/02/24 06:28 03/31/24 05:34 PG Care Time/CCT Total # of Minutes Spent Total Time Spent with Patient: Total time spent is greater than 50% in coordination of care (as documented) at patient's floor/unit and/or counseling patient: Coding Level of Care Code 72376 SUB INP/OBS CARE 1MIN Diagnoses Recurrent fever A68.9 BPH w urinary obs/LUTS N40.1; N13.8 History of infection with vancomycin resistant Enterococcus (VRE) Z86.19 Stroke I63.9 COPD (chronic obstructive pulmonary disease) J44.9 Hypertension I10 Seizure-like activity R56.9 Diabetes mellitus type 2, controlled E11.9
[2024-04-04 07:57] VITALS: TEMP 97.9
[2024-04-04 08:34] LABS: Basophils # (auto) 0.06 K/uL (0.00-0.20); Basophils % (auto) 1.1 %; Eosinophils # (auto) 0.58 K/uL (0.00-0.50); Hematocrit (blood only) 38.5 % (42.0-52.0); Hemoglobin 13.3 g/dl (14.0-18.0); Immature Granulocytes # (auto) 0.04 K/uL (0.01-0.20); Immature Granulocytes % (auto) 0.8 %; Lymphocytes # (auto) 1.29 K/uL (1.20-3.40); Lymphocytes % (auto) 24.4 %; Mean Corpuscular Hgb Conc 34.5 g/dL (32.0-36.0); Mean Corpuscular Volume 89.7 fL (80.0-100.0); Mean Platelet Volume 10.5 fL (9.4-12.4); Monocytes # (auto) 0.59 K/uL (0.11-0.59); Monocytes % (auto) 11.2 %; Neutrophils # (auto) 2.72 K/uL (1.40-6.50); Neutrophils % (auto) 51.5 %; Platelet Count 174 K/uL (130-400); RDW Coefficient of Variation 13.5 % (11.5-14.5); RDW Standard Deviation 43.9 fL (36.4-46.3); Red Blood Count 4.29 M/uL (4.70-6.10); White Blood Count 5.28 K/ul (4.8-10.8)
[2024-04-04 08:49] LABS: BUN Creatinine Ratio 7.8 (10-20); Calcium 9.2 mg/dl (8.6-10.3); Est GFR (African American) 111.9 ml/min; Est GFR (Non-African American) 96.6 ml/min; Potassium 3.8 mmol/L (3.5-5.1)
[2024-04-04] MEDS ORDERED: LIDOCAINE 2% JELLY 5 ML TUBE EXT PRN (08:53)
[2024-04-04 13:53] VITALS: BP 124/77; PULSE 80; O2SAT 96
--- NOTE | 2024-04-04 19:48 | Discharge Summary ---
Discharge Summary Date of Service April 04, 2024 Principal Dx & Hospital Course #1 = Principal Diagnosis (1) Recurrent fever: 64 y/o who underwent REZUM procedure for BPH with LUTS on 03/[address] Greene. Following that he has had recurrent fevers treated at [facility]. This started 03/16 with fevers chills and malaise, temp reported up to [address] max [address] 18[address] chest/abdomen/pelvis notable for cystitis, postoperative changes, stercoral colitis. He had urine culture positive for VRE sensitive to macrobid. He was treated for UTI with 6/7 days pip-tazo and vancomycin (started 03/24) and seemed to improve. ID consulted and since he was improving and VRE might have been colonizer rather than pathogen, recommended finishing the 7d course of IV then 7d oral macrobid. He was discharged to SNF. 03/30 presented again to local ED with fever 101.6, flu/covid negative, CXR neg, W7, BMP unremarkable, UA with pyuria did still have tapia in place. On transfer here, similar data and resp biofire negative. Continued on pip-tazo and vancomycin at time of admission. On 03/31 stopped pip-tazo and vacomycin and started daptomycin to cover VRE. Remained febrile through afternoon of 03/31 but since then no fever and feels much better -continue daptomycin to cover VRE which was only organism isolated from urine. our urine Cx with 5K GPC not speciated. blood cultures from 03/30 ngtd. Blood cultures from [facility] were negative -potentially improved because of treating the VRE, versus possibility of drug fever that resolved (did have mild rash that has resolved, slight increase in Eos) -day 5/7 daptomycin then oral macrobid to complete total of 14d for postprocedural / catheter associated UTI - with his urologist Dr. Greene consulted this admission Mild LLQ tenderness present 03/31 resolved on exam ultrasound-guided peripheral IV was placed he will do 2 more days IV daptomycin at residential (2) BPH w urinary obs/LUTS: Status post Rezum procedure with Dr. Greene on 03/10/2024 Has required tapia since Continue alfluzosin and finasteride Urology following day of discharge Tapia was removed and he passed a voiding trial with PVR of only 100 by bladder scan please monitor urine output and monitor PVR by bladder scan, replace Tapia if recurrent urinary retention he has follow-up with urology scheduled (3) History of infection with vancomycin resistant Enterococcus (VRE): see above urine VRE was sensitive to macrobid (4) Stroke: History of remote stroke and crani with L hemiparesis - neurologically is at baseline Continue aspirin, Plavix, stain held while on daptomycin but resume after completed ow-air-loss mattress, heel precautions, acute 2-hour turn/position due to left-sided hemiparesis continue baclofen Continue gabapentin (5) COPD (chronic obstructive pulmonary disease): Currently stable on room air without signs of wheezing on exam Incentive spirometry, continue home albuterol and Trelegy Ellipta As needed O2 to keep SpO2 between 89-92%, patient and confirmed that the patient does have diagnosis of RHIANNON but has been unable to tolerate at bedtime CPAP in the past so may become hypoxic at night (6) Hypertension: Currently normotensive Continue home diltiazem (7) Seizure-like activity: no recent seizure-like activity Continue Lamictal (8) Diabetes mellitus type 2, controlled: Patient's explains that the patient's initial diagnosis for diabetes indu litus was done while he was on systemic steroids Has not required insulin and was reportedly taken off of metformin after he completed his course of steroids Patient remains on Jardiance for his heart per patient and Plan Bilateral buttocks partial thickness wounds present on admission - continue wound care per WON recommendations PT and OT eval's. Recently at [facility] - returned there At baseline can walk using hemiwalker I updated his at bedside 04/04 Notes For Next Care Provider daptomycin through 04/06 then may extend with 7 more days macrobid, however the macrobid might be unnecessary since tapia is out Monitor PVR possible drug fever and mild rash while on IV vancomycin and pip-tazo rash resolved topical steroid for seborrhea rash on chin Medication Changes From Visit hold statin until off daptomycin Admission HPI Per Admitting Provider El is a 64-year-old male with a past medical history significant for COPD, prior CVA with left-sided hemiparesis, seizure disorder, DM type II, GERD, hypertension, hyperlipidemia, and BPH status post Rezum procedure with Dr. Greene on 03/10/2024 who was transferred to our facility from [facility] emergency department due to recurrent fever and UTI while on IV antibiotics at his SNF. Patient was recently admitted to [facility] from 03/23/24 - 03/28 04/05 after being discharged from the same hospital on 03/17/2024 due to sepsis/UTI after his recent Rezum procedure with Dr. Greene. During his most recent admission to [facility] the patient grew VRE on urine cultures with negative blood cultures. CT abdomen pelvis shows signs of possible sterile coral colitis but was otherwise negative for acute findings. CT of the chest was without acute changes. The patient had been started on Zosyn/vancomycin at the time of admission on 03/23/2024. Infectious disease was consulted and recommended continuing the patient on Zosyn/vancomycin through 03/31/2024 as he was reportedly improving on this combination. The patient continued to improve while on Zosyn/vancomycin and was discharged to [facility] on 03/28/2024. Infectious disease reportedly recommended the patient completed 7-day course of Macrobid after he completed his course of IV antibiotics. He presented back to the [facility] emergency department on 03/30/2024 from his SNF due to concerns for recurrent fevers. Per the transfer documentation, patient was noted to have signs of a recurrent UTI. Admission the patient was lying in bed no acute distress at this time sitting bedside, history is obtained from both. His explains that the patient has continued his IV antibiotics at SNF. Early this a.m. he had mul tiple fevers ranging from [id number] which is why he was sent to the ED. When asked, patient states that he has otherwise felt fine. Denies recent headaches, chest pain, shortness of breath, cough, abdominal pain, nausea/vomiting, diarrhea. When asked, his states that the patient has 2 small areas of skin breakdown on his sacrum but is otherwise without signs of recent wounds. Patient missed the majority of his a.m. and after medications but his was able to get him his noon dose of diltiazem and gabapentin. We discussed CODE STATUS, the patient is a full code and his is his primary decision-maker if he cannot make decisions himself. Please refer to Dr. Cruz's attestation for any changes to treatment plan Discharge Exam PHYSICAL EXAMINATION Last 24h vital signs reviewed, see documentation in flowsheet General: awake lying in bed exam unchanged 04/04: HEENT: Normocephalic, atraumatic, pupils round and equal, sclerae anicteric, no conjunctival injection, moist mucus membranes. erythematous rash with waxy/scaly patches well circumscribed on chin inferior to lip - seems improved Skin: rash on shoulders upper chest has resolved, has small petechia both lower extremities below the knee - this was more salmon-pink and warmer previously appears resolving Lungs: Normal respiratory effort. Clear to auscultation bilaterally. No RRW Heart: Regular rate and rhythm, no murmurs. No JVD Abdomen: Soft, nondistended. nontender bowel tones are present Extremities: Warm, dry, well-perfused. No extremity edema. : Tapia catheter draining clear yellow urine Neuro: Alert and oriented x 4, face symmetric, left-sided weakness with 0 out of 5 strength left upper extremity, 34 out of 5 strength left lower extremity - at baseline Psych: Normal affect and behavior Discharge Plan Discharge Items Patient Disposition: Transfer Residential Fac Reason For Visit: fever of unknown origin Discharge Diagnosis: VRE postprocedural UTI / CAUTI Condition on Discharge: Good Activity: Per Instructions section Weightbearing: Full weightbearing Non-emergency contact: Primary Care Provider and Urologist Call non-emergency contact if: you have any medication questions, your symptoms worsen and you have a fever Follow-up/Referrals: Evelio Herrera PA-C [Physician Mac Developer] - 04/18/24 1:30 pm Cleina Elizondo DO [Primary Care Provider] - Diet: Carb Consistent or DM2 Addtl Attending Provider Instructions: PT and OT evaluate and treat Continue daptomycin last dose 04/06 completes 7 day course Then continue macrobid for 7 additional days Pressure relief mattress / air overlay Monitor blood glucose qAM Voiding trial completed 04/04 AM Monitor postvoid residual with bladder scan, replace tapia catheter if ongoing urinary retention Wound care: to bilateral buttocks- after cleansing dust with stoma powder, brush off excess, cover with barrier cream. reapply several times a day to protect area Turn at least every 2 hours waffle boots Follow up with urology as scheduled: Evelio Herrera PA-C with Dr Greene 04/18/24 at 1:30 pm Pending Studies at Discharge: Yes (blood culture NGTD, not yet finalized) Stand-Alone Forms: My [facility] Skilled Items Patient informed of condition?: Yes DNR: No Discharge Level of Care: Skilled Communicable Disease: No Discharge Prognosis: Improving Lines: Peripheral IV Urinary Catheter: Yes Medications and DC Order Prescriptions: New gabapentin 600 mg Tablet 1,200 mg PO HS Qty: 0 0RF ropinirole 1 mg Tablet 1 mg PO HS Qty: 0 0RF hydrocortisone 1 % Ointment 1 applic EXT BID Qty: 0 0RF Rx Instructions: for one week to seborrhea rash in stokes area gabapentin 400 mg Capsule 400 mg PO TIDM Qty: 0 0RF daptomycin 500 mg recon soln See Rx Instructions .ROUTE .COMPLEX Rx Instructions: 650 mg IV q 24h last dose 04/06/24 administer over 30 mins nitrofurantoin macrocrystal 100 mg capsule 100 mg PO BID 7 Days Qty: 14 0RF Rx Instructions: start on 04/07/24 and continue for 7 days must administer with a meal/food Continued loratadine [Claritin] 10 mg tablet 10 mg PO QAM baclofen 10 mg tablet 10 mg PO QID aspirin [Adult Aspirin Regimen] 81 mg tablet,delayed release (DR/EC) 81 mg PO QAM diltiazem HCl 30 mg tablet 30 mg PO QID folic acid 1 mg tablet 1 mg PO QPM pantoprazole 40 mg tablet,delayed release (DR/EC) 40 mg PO QAM finasteride 5 mg tablet 5 mg PO QAM alfuzosin 10 mg tablet extended release 24 hr 10 mg PO QAM Rx Instructions: administer after the same meal each day Jardiance 10 mg tablet 10 mg PO QAM clopidogrel [Plavix] 75 mg tablet 75 mg PO QPM ferrous gluconate 324 mg (37.5 mg iron) tablet 324 mg PO Q2D ascorbic acid (vitamin C) 250 mg tablet 250 mg PO QPM cholecalciferol (vitamin D3) 125 mcg (5,000 unit) capsule 125 mcg PO QPM Patient Comments: noon thiamine HCl (vitamin B1) [Vitamin B-1] 50 mg tablet 50 mg PO HS melatonin 5 mg capsule 5 mg PO HS multivitamin Tablet 1 tab PO QAM fluticasone propionate 50 mcg/actuation spray,suspension 1 spray intranasal DAILY Rx Instructions: administer into each nostril ipratropium bromide 21 mcg (0.03 %) spray,non-aerosol 2 spray intranasal BID PRN (Reason: Congestion) Rx Instructions: administer into each nostril azelastine 137 mcg (0.1 %) aerosol,spray 1 spray intranasal BID Rx Instructions: administer into each nostril ketoconazole 2 % cream 1 applic topical DAILY PRN (Reason: Skin Irritation) fluticasone furoate-vilanterol [Breo Ellipta] 100-25 mcg/dose blister with device 1 inh inhalation UD PRN (Reason: SOB) albuterol sulfate [Ventolin HFA] 90 mcg/actuation HFA aerosol inhaler 1 inh inhalation QID PRN (Reason: SOB) acetaminophen [Tylenol] 325 mg capsule 325 mg PO QID PRN (Reason: Pain) famotidine 40 mg Tablet 40 mg PO HS lamotrigine 25 mg Tablet 50 mg PO BID potassium chloride 30 mEq/15 mL Liquid 30 meq PO QAM magnesium 250 mg Tablet 250 mg PO QPM formoterol fumarate 20 mcg/2 mL Solution For Nebulization 2 ml INHALATION QAM phenazopyridine [Pyridium] 200 mg tablet 200 mg PO Q8H PRN (Reason: pain) Qty: 10 0RF oxybutynin chloride 5 mg tablet 5 mg PO Q8H PRN (Reason: bladder spasms) Qty: 20 0RF Held atorvastatin 40 mg tablet 40 mg PO QPM Hold Instructions: Resume on 04/07/24. hold while on daptomycin Patient Comments: noon Discontinued ropinirole 0.5 mg tablet 1 mg PO HS gabapentin 400 mg Capsule 400 mg PO UD Rx Instructions: 400mg QAM, noon, supper and 1200 at HS Discharge Orders: Discharge Order (Routine); Ordered 04/04/24 Ordered By: Breanna Dumas/Other Patient Handouts: VRE Infection Admission Data Admit Date/Time: 03/30/24 16:25 Attending Provider: Breanna Syed Admit Provider: Breanna Syed Primary Care Provider: Celina Elizondo Other Interventions: Discharge Summary Assessment (RN) Last Done: 04/04/24 14:11 Hospital Stay Data Pending Results Patient Have Any Pending Studies at Discharge: Yes (blood culture NGTD, not yet finalized) Discharge Instructions Given to Patient (Per Discharging Provider) PT and OT evaluate and treat Continue daptomycin last dose 04/06 completes 7 day course Then continue macrobid for 7 additional days Pressure relief mattress / air overlay Monitor blood glucose qAM Voiding trial completed 04/04 AM Monitor postvoid residual with bladder scan, replace tapia catheter if ongoing urinary retention Wound care: to bilateral buttocks- after cleansing dust with stoma powder, brush off excess, cover with barrier cream. reapply several times a day to protect area Turn at least every 2 hours waffle boots Follow up with urology as scheduled: Evelio Herrera PA-C with Dr Greene 04/18/24 at 1:30 pm Total Time Total Time Spent Total Time Spent (In Minutes): I personally spent: 40 minutes today on clinical care activities including: reviewing chart notes and vital signs discussion with urologist discussion with intensive care anaesthetist, bedside nurse examining and counseling the patient counseling the patient's family writing orders writing prescriptions, discharge instructions documentation Coding Level of Care Code 70507 INP/OBS DISCH >30 MIN Diagnoses Recurrent fever A68.9 BPH w urinary obs/LUTS N40.1; N13.8 History of infection with vancomycin resistant Enterococcus (VRE) Z86.19 Stroke I63.9 COPD (chronic obstructive pulmonary disease) J44.9 Hypertension I10 Seizure-like activity R56.9 Diabetes mellitus type 2, controlled E11.9
--- NOTE | 2024-04-05 13:53 | Coding Query ---
PRESSURE ULCER DOCUMENTATION To promote full compliance with coding requirements relating to patient care, physician participation is requested in all cases of area operations director uncertainty. Please assist us with the question(s) below: Please specify the known or suspected type by placing an "X" within the parenthesis (x). A pressure ulcer of the (RAILROAD SIGNAL OPERATOR INSERT SITE) SACRUM Per progress notes, DS patient small partial thickness sacral wound POA . Thanks for your help! ROB Hernandez CCS If possible, please check the box that provides the specific stage of the pressure ulcer ( ) Stage I ( x) Stage II ( ) Stage III ( ) Stage IV ( ) Unstageable Was the pressure ulcer present on admission? Please check the appropriate box for the pressure ulcer: (x ) Present on admission ( ) Not present on admission ( ) Unable to be clinically determined Thank you Guy CONTRERAS
== END 2024-04-04 15:41 | DRG 699 ==
LOC: 3N 16:25 → INTOOBSV 17:09 → OBSVTOIN 17:09

== ENCOUNTER 2024-06-06 06:45 | Observation (INO) ==
--- NOTE | 2024-06-02 08:30 | Anesthesiology Consultation ---
Date of Service June 02, 2024 Assessment & Plan (1) Encounter for pre-operative examination: Chart Review Chart Review: Acceptable Risk for Surgery (pending anesthesia evaluation DOS and DOS CBC with diff) and Patient NOT seen in Pre Admission Testing - Check CBC with diff stat DOS (not done preoperatively) - Check BSG AM DOS - Will leave to anesthesiologist's discretion if CXR needed DOS - Discussed case with Dr Perez- due to nature of procedure- patient can proceed as scheduled Per surgeon's office- patient is continuing Plavix, ASA and Eliquis perioperatively -Infectious Disease screening: Per PAT nursing assessment on 06/01/24. No known infectious disease contacts in past 10 days or current infectious disease symptoms. No recent travel outside the country. Patient seen by PCP 05/18/24= seen for hospital follow up. Admitted for syncope, DVT and orthostatic hypotension. Being treated for UTI, aspiration PNA, right LE cellulitis and dehydration. Currently on cefdinir (completed azithromycin and prednisone). Started on Eliquis. Holding Diltiazem. Follow up labs ordered. Referral to nephrology for ELOY/dehydration. Tachycardia on exam- discussed with NEFTALY- advised Lexiscan (order placed). Encouraged hydration- patient will call with BP and HR tomorrow. Referral placed to heme for new DVT. Recommend miguel and mupirocin oint to buttocks wound. Urology follow up 05/25/24. (Patient's stress test is not scheduled until beginning of Jun 2024- patient has no chest pain- stress test being ordered by PCP due to tachycardia. Per 06/02/24- HR has been in low 100s. Patient's buttocks wound is improving- home health is following. Patient's states patient does NOT follow with vascular surgeon for carotid disease ([facility] and a specialist in [place] for venous insufficiency) Seen by [facility] 01/22/24= seen for follow up. Large right frontal MELISA MCA territory ischemic stroke 04/2022 with atheroembolism from right cervical ICA acute occlusion on chronic stenosis treated with TNK and angioplasty with residual stenosis who underwent delayed SUNIL stenting on 05/06/22 that later re-occluded. There is also chronic LICA occlusion with collateral flow supplying the MCA territories. Continue current meds. Follow up in six months. REZUM 03/10/24= Done under MAC History Surgery Operation Date: 06/06/24 09:00 Proposed Procedures p TURP (Transurethral Resection Prostate) - Fran Greene DO s Evacuation of Bladder, Incision of Bladder Neck - Fran Greene DO Height/Weight Height: 6 ft 1 in Weight: 92.986 kg Allergies Allergy/AdvReac Type Severity Reaction Status Date / Time Sulfa (Sulfonamide Allergy Unknown Hives Verified 06/01/24 11:09 Antibiotics) Medications Home Medications Medication Instructions Recorded Confirmed Last Taken acetaminophen 325 mg capsule 325 mg PO QID PRN Pain 11/20/23 06/01/24 03/09/24 12:00 (Tylenol) albuterol sulfate 90 mcg/actuation 2 inh inhalation QID PRN SOB 11/20/23 06/01/24 03/09/24 14:00 aerosol inhaler (Ventolin HFA) alfuzosin 10 mg tablet,extended 10 mg PO QAM 11/20/23 06/01/24 03/29/24 09:00 release 24 hr ascorbic acid (vitamin C) 250 mg 250 mg PO Q OTHER DAY 11/20/23 06/01/24 03/08/24 18:00 tablet aspirin 81 mg tablet,delayed 81 mg PO QAM 11/20/23 06/01/24 03/29/24 09:00 release (Adult Aspirin Regimen) atorvastatin 40 mg tablet 40 mg PO QPM 11/20/23 06/01/24 03/29/24 21:00 azelastine 137 mcg (0.1 %) nasal 1 spray intranasal BID PRN 11/20/23 06/01/24 Unknown spray Congestion baclofen 10 mg tablet 10 mg PO QID 11/20/23 06/01/24 03/29/24 21:00 cholecalciferol (vitamin D3) 125 125 mcg PO QDL 11/20/23 06/01/24 03/29/24 21:00 mcg (5,000 unit) capsule clopidogrel 75 mg tablet (Plavix) 75 mg PO QPM 11/20/23 06/01/24 03/29/24 21:00 empagliflozin 10 mg tablet 10 mg PO QAM heart 11/20/23 06/01/24 03/29/24 09:00 (Jardiance) ferrous gluconate 324 mg (37.5 mg 324 mg PO Q2D 0506/01/24 03/29/24 09:00 iron) tablet finasteride 5 mg tablet 5 mg PO QAM 11/20/23 06/01/24 03/29/24 09:00 fluticasone furoate 100 1 inh inhalation UD PRN SOB 11/20/23 06/01/24 Unknown mcg-vilanterol 25 mcg/dose inhalation powder (Breo Ellipta) fluticasone propionate 50 1 spray intranasal DAILY 11/20/23 06/01/24 Unknown mcg/actuation nasal spray,suspension folic acid 1 mg tablet 1 mg PO QDL 11/20/23 06/01/24 03/29/24 09:00 ipratropium bromide 21 mcg (0.03 2 spray intranasal BID PRN 11/20/23 06/01/24 Unknown %) nasal spray Congestion ketoconazole 2 % topical cream 1 applic topical DAILY PRN Skin 11/20/23 06/01/24 03/08/24 Irritation loratadine 10 mg tablet (Claritin) 10 mg PO QA 11/20/23 06/01/24 03/29/24 09:00 melatonin 5 mg capsule 5 mg PO 11/20/23 06/01/24 03/29/24 21:00 multivitamin 1 tab PO QA 11/20/23 06/01/24 03/29/24 09:00 pantoprazole 40 mg tablet,delayed 40 mg PO [facility] 11/20/23 06/01/24 03/29/24 release thiamine HCl (vitamin B1) 50 mg 50 mg PO 11/20/23 06/01/24 03/09/24 21:00 tablet (Vitamin B-1) famotidine 40 mg tablet 40 mg PO 03/03/24 06/01/24 03/29/24 21:00 formoterol fumarate 20 mcg/2 mL 2 ml inhalation QA 03/03/24 06/01/24 03/09/24 08:00 solution for nebulization lamotrigine 25 mg tablet 50 mg PO BID 03/03/24 06/01/24 03/29/24 21:00 magnesium 250 mg tablet 250 mg PO QPM 03/03/24 06/01/24 03/29/24 21:00 potassium chloride 30 mEq/15 mL 30 meq PO QA 03/03/24 06/01/24 03/29/24 09:00 oral liquid gabapentin 400 mg capsule 400 mg PO TIDM #0 caps 04/03/24 06/01/24 Unknown gabapentin 600 mg tablet 1,200 mg (2 x 600 mg) PO HS #0 tabs 04/03/24 06/01/24 Unknown hydrocortisone 1 % topical ointment 1 applic EXT BID #0 grams 04/03/24 06/01/24 Unknown ropinirole 1 mg tablet 1 mg PO HS #0 tabs 04/03/24 06/01/24 Unknown lidocaine HCl 2 % mucosal jelly in 1 applic topical BID #250 mL 05/19/24 06/01/24 Unknown applicator (Glydo) amoxicillin 500 mg-potassium 1 tab PO BID 06/01/24 06/01/24 Unknown clavulanate 125 mg tablet (Augmentin) apixaban 5 mg tablet (Eliquis) 5 mg PO BID 06/01/24 06/01/24 Unknown guaifenesin 200 mg capsule 200 mg PO Q4H PRN excessive mucous 06/01/24 06/01/24 Unknown Past Medical History Medical History (Updated 06/02/24 @ 10:17 by Joseline Wylie PA-C) Aspiration pneumonia - during 05/13/24 [facility] admission per PCP records - treated with azithromycin and prednisone; taking cefdinir as of 05/18/24 PCP records (also had UTI and right LE cellulitis) BPH w urinary obs/LUTS Carotid stenosis - 04/01/22: had thrombectomy of right terminus ICA occlusion and angioplasty of right cervical ICA (after CVA) - 05/06/22- underwent right ICA stenting - 11/2022- imaging showed left chronic ICA occlusion; right ICA proximal stent patent but no flow to distal stent segment - currently has bilateral ICA occlusion with reconstitution of the left supraclinhoid ICA through collateralization per neuro records Chronic anticoagulation Plavix and ASA since CVA 2021; Eliquis since LLE DVT 05/13/24 COPD (chronic obstructive pulmonary disease) Diabetes mellitus type 2, controlled DVT (deep venous thrombosis) LLE (while on Plavix and ASA) 05/13/24; started on Eliquis Reed catheter in place GERD (gastroesophageal reflux disease) History of recent hospitalization 05/13/24 to 05/16/24- pt had near syncope at home and went to [facility]- diagnosed with hypotension- diltiazem d/c'ed but also diagnosed with left LE DVT - he was also hospitalized at [facility] and [facility] after 02/2024 REZUM procedure with fevers and dx with VRE; pt was D/C from [facility] 04/04/24 to rehab facility; pt currently living at home with caregiver and home assistance Hx of difficult intubation many years ago at [facility] with a shoulder surgery was told they had difficulty intubating; per pt's , 'was told likely because he was a smoker and had stopped smoking prior to the surgery and his airway was irritated'; he is no longer a smoker and has not had any issues with intubation since that time Hx of polycythemia vera dx listed on chart; per pt's , pt was told after multiple surgeries around 2013 that his blood was 'too thick' and he had a procedure to 'thin blood' and was monitored for a short time after that; no issues since that time Hypertension hx of HTN but has recently had issues with hypotension and had a near syncopal episode 05/13/24 and then was taken off of diltiazem Neuropathy Obstructive sleep apnea cannot tolerate CPAP RLS (restless legs syndrome) Seizure-like activity - on lamictal; first sz occurred 10/11/22; per pt's , "seems to get about every 3 months, most recent 01/07/24 that is when he was put on the lamictal" - he did have an episode while admitted (Mar 2024) but also had high fever at the time. - pt follows with stroke clinic at 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 Past Surgical History Surgical History (Updated 06/02/24 @ 10:17 by Joseline Wylie PA-C) History of urologic surgery REZUM 03/10/24: MAC without issue Hx of arthroscopy of shoulder x2, left Hx of brain surgery 2021, craniectomy with thrombectomy, [facility] Hx of cervical spine surgery in the early ; ROM "is a little limited since stroke but was not limited prior to stroke from this sx" Hx of colonoscopy Hx of craniotomy 2021, formerly [facility], [facility] Hx of lumbosacral spine surgery late , L5 Hx of rotator cuff surgery left, open procedure Hx of tonsillectomy Internal carotid artery stent present 04/2022 Social History Smoking Status: Former smoker Do You Dip or Chew Tobacco: No Smoking End Date: 2021 Hx Alcohol Use: No Alcohol type: beer Hx Substance Use: No substance use type: does not use Lab Results Anesthesia Preop Results Results Anesthesia Widget: Na 137 mmol/L (136-145) 05/25/24 K 3.9 mmol/L (3.5-5.1) 05/25/24 Cl 102 mmol/L (98-107) 05/25/24 CO2 27 mmol/L (21-32) 05/25/24 BUN 10 mg/dl (6-23) 05/25/24 Creat 0.83 mg/dl (0.6-1.4) 05/25/24 Glucose Level 102 mg/dl (70-99(Fasting)) H 05/25/24 Testing Laboratory Results 05/31/24= URINE CULTURE: Yeast, >100,000 CFU/ml (preliminary findings- will leave final results to surgeon's discretion to follow and on how to proceed) Electrocardiogram Date: 05/04/24 Findings: + ST @ (113bpm) Chest X-Ray Date: 03/30/24 FINDINGS: Postoperative findings within the cervical spine are incidentally noted. Lung volumes are mildly diminished. Mild bibasilar opacities have developed. There is mild interstitial thickening. Patient is rotated. No pleural effusion or pneumothorax. IMPRESSION: 1. Bibasilar opacities which could reflect pneumonia or atelectasis. 2. Pleural vascular congestion with suspected mild pulmonary edema. Other Testing Abdomen/Pelvis CT 05/25/24= No renal or ureteral calculi, hydronephrosis or upper urothelial lesion is identified. Decompressed urinary bladder with Reed catheter in place is not well attenuated, however, note is made of intraluminal debris inferior to the balloon suggestive of blood products. Colonic diverticulosis. Splenomegaly. Borderline-enlarged periportal and right iliac chain lymph nodes. Head/Neck CTA February 2023 (per neuro note 01/22/24- report not available)= Bilateral ICA occlusion with reconstitution of the left supraclinoid ICA through collateralization. Diminutive BACAs, inferior LM2 not well visualized, narrowing of RM 1 with M2 reconstitution. Carotid doppler 12/02/22= Right ECA shows >50% stenosis. Proximal right ICA stent appears patent; however this is no flow documented in the mid and distal right ICA stent (proximal flow shows poor diastolic component as well- these findings are suggestive of a more distal right ICA occlusion/severe stenosis). Left ICA is chronically occluded.
[2024-06-06 07:59] LABS: Basophils # (auto) 0.04 K/uL (0.00-0.20); Basophils % (auto) 0.5 %; Eosinophils % (auto) 10.9 %; Hematocrit (blood only) 40.6 % (42.0-52.0); Hemoglobin 13.9 g/dl (14.0-18.0); Immature Granulocytes # (auto) 0.06 K/uL (0.01-0.20); Immature Granulocytes % (auto) 0.8 %; Lymphocytes # (auto) 1.12 K/uL (1.20-3.40); Lymphocytes % (auto) 15.2 %; Mean Corpuscular Hemoglobin 30.9 pg (25.0-34.0); Mean Corpuscular Hgb Conc 34.2 g/dL (32.0-36.0); Mean Corpuscular Volume 90.2 fL (80.0-100.0); Mean Platelet Volume 10.8 fL (9.4-12.4); Monocytes # (auto) 0.72 K/uL (0.11-0.59); Monocytes % (auto) 9.8 %; Neutrophils # (auto) 4.61 K/uL (1.40-6.50); Neutrophils % (auto) 62.8 %; Platelet Count 147 K/uL (130-400); RDW Coefficient of Variation 13.7 % (11.5-14.5); RDW Standard Deviation 45.4 fL (36.4-46.3); White Blood Count 7.35 K/ul (4.8-10.8)
[2024-06-06] MEDS ORDERED: ONDANSETRON INJ 2 MG/ML 2 ML VIAL IV PRN (08:16)
--- NOTE | 2024-06-06 08:16 | History & Physical Bridge Note ---
Date of Service June 06, 2024 History & Physical Bridge Note I have examined the patient, reviewed the History & Physical and in the interval since the performance of the History & Physical I have noted the following changes of clinical significance: no changes noted
[2024-06-06] MEDS: CASPOFUNGIN 70 MG in SODIUM CHLORIDE 0.9% 250 ML IV ONE (08:42)
[2024-06-06] MEDS: LR 15ML/HR IV SCH (08:54)
[2024-06-06] MEDS ORDERED: fentaNYL citrate PF 100 MCG/2 ML VIAL ONE (09:55)
[2024-06-06] MEDS ORDERED: MIDAZOLAM HCL 1 MG/ML 2ML VIAL ONE (09:55)
[2024-06-06] MEDS ORDERED: PROPOFOL IV EMULSION 10 MG/ML 20 ML VIAL IV ONE ×2 (09:57)
[2024-06-06] MEDS ORDERED: LIDOCAINE 2% 2 ML VIAL/AMP(20MG/ML) INFIL ONE ×2 (10:23)
[2024-06-06] MEDS ORDERED: PHENYLEPHRINE 100MCG/ML 5ML SYR ONE (10:39)
[2024-06-06] MEDS: AMPHOTERICIN B 50 MG IR SCH (11:11)
[2024-06-06] MEDS: [UNRECOGNIZED DRUG - OTHER] IR SCH (11:11)
--- NOTE | 2024-06-06 11:26 | Operative Report ---
PG Post Operative Report Pre & Post Diagnosis Operation Date: 06/06/24 09:45 Pre-Op Diagnosis: Bladder Neck Obstruction, Acute Urinary Retention Post-Op Diagnosis: Bladder Neck Obstruction, Acute Urinary Retention I identified the patient and participated in the time-out.: Yes Procedure Operation Date: 06/06/24 09:45 Actual Procedures Cystoscopy with TURP (Transurethral Resection Prostate), TURBT (Transurethral Resection of Bladder Tumor) Small, incision of bladder neck, Fulguration of bladder ulcer, Foreign body removal and Evacuation of Bladder, and Instillation of Medication into Bladder(Not Applicable) - Fran Greene, DO Surgeon Fran Greene, II, DO Cop Examiner None Estimated Blood Loss 5 Findings Consistent with Post-Op Diagnosis Polypoid nodule within prostatic urethra, nodular growth/obstruction of prostate. Irregular bridging/injury at bladder neck with polypoid vs papillar lesion at the trigone midline between ureter. Ulcerated lesion of the posterior wall Large foreign body within bladder, likely fungal ball/debris vs necrotic tissue sloughing from prostate Specimens Prostate adenoma. Bladder resection Urine and foreign body for culture from bladder Drains 22Fr three-way catheter with amphotericin B continuous instillation Anesthesia Type General Complications none Disposition Disposition: Recovery Room Indications Patient with obstruction due to prostate enlargement. Large debris/mass/lesion within the bladder. Glabrata infection. Risks and benefits discussed at length. Description of Procedure Patient was consented and brought back to the operating room. Patient was placed under anesthesia in the supine position and moved to the dorsal lithotomy position. Patient was prepped and draped in the regular sterile fashion. A time out was completed. A 30degree Cystoscope was placed into the bladder and the entire bladder was examined. A large amount of debris likely fungal ball versus bladder mucus and debris versus sloughing tissue from the prostate was discovered within the bladder. The tissue and debris took up a majority of the bladder lumen and was thick and white irregular tissue. There was also areas of bladder ulceration on the posterior wall. A bladder neck injury/undermining of the bladder neck was appreciated with bridging at the bladder neck causing obstruction at the bladder neck additionally there was a polypoid first papillary lesion within the bladder directly under the undermined area involving the trigone causing obstructive issues. Within the prostatic urethra there was numerous nodular growth as well as a polypoid lesion within the prostatic urethra near the Veru. Extensive irrigation was completed in order to clear the large amount of debris and evacuation was completed utilizing saline to irrigate the foreign body from the bladder. The material was able to be broken off and irrigated out. This wa s sent for microanalysis. Extensive irrigation was necessary. The material was able to be broken up and completely removed. A better visualization of the bladder was then completed. There appeared to been some sort of injury likely from catheter placement over the last month at the bladder neck which undermined the bladder neck and caused a second separate channel with bridging across there was a significant inflammatory changes around the bladder neck there was also nodular tissue within the prostatic urethra and the polypoid lesion. The UO's were identified as well as the bladder neck, trigone, dome, and the other important landmarks. The prostatic urethra and large lobes/adenoma was assessed and the veru and bladder neck identified and area/size was assessed. The resection scope was placed and the fine bipolar loop was selected. The ulcerated lesions on the posterior wall were fulgurated. This control bleeding. There was 3 large areas of ulceration that were fulgurated. The prostatic urethra was then resected removing the nodular tissue. Starting at the 5 and 7 o'clock positions, a channel was created from bladder neck to the veru. The polypoid lesion was able to be completely resected. Anteriorly there was additional tissue that was resected. The Specimen was removed and sent for analysis. The resection bed and any bleeding areas were fulgurated/cauterized and the entire area inspected. All bleeding was controlled. The injury at the bladder neck with the undermining and the separate channel was then incised using the resection scope. The polypoid lesion within the midline of the trigone was able to be resected with this. Approximate area of 1.5 cm was resected. The base of the resection area was then fulgurated. The incision at the bladder neck drastically improved the channel connecting the 2 separate channels The bladder was inspected a final time. The bladder was emptied and irrigated. All specimen and debris was removed. The scope was removed with the bladder partially full. A catheter was placed and balloon elevated. This was easily irrigated. After irrigating with saline and determining that the urine appeared to be c lear. Utilizing proper medication handling the amphotericin B instillation was attached to the catheter. This had been already attached to a catheter bag. Instillation then commenced. The patient was cleaned, aroused from anesthesia, and transferred to the pacu in stable condition having tolerated the procedure well with no complications. I was present and participated in all aspects of the procedure. The patient will be monitored in the PACU until transferred. Patient will be observed overnight with the amphotericin B continuous instillation. Will plan for a an additional dose tomorrow. Will continue with antifungals as well as antibiotics. Will plan to have patient monitor overnight. Will maintain catheter for 2 weeks with removal in the office. I attest to the content of the Intraoperative Record and any orders documented therein. Any exceptions are noted below.
[2024-06-06 12:20] LABS: Basophils # (auto) 0.03 K/uL (0.00-0.20); Basophils % (auto) 0.5 %; Eosinophils # (auto) 0.68 K/uL (0.00-0.50); Eosinophils % (auto) 10.6 %; Hemoglobin 13.1 g/dl (14.0-18.0); Immature Granulocytes # (auto) 0.04 K/uL (0.01-0.20); Immature Granulocytes % (auto) 0.6 %; Lymphocytes # (auto) 1.09 K/uL (1.20-3.40); Mean Corpuscular Hemoglobin 30.6 pg (25.0-34.0); Mean Corpuscular Hgb Conc 33.6 g/dL (32.0-36.0); Mean Corpuscular Volume 91.1 fL (80.0-100.0); Mean Platelet Volume 10.6 fL (9.4-12.4); Monocytes # (auto) 0.64 K/uL (0.11-0.59); Neutrophils # (auto) 3.92 K/uL (1.40-6.50); Neutrophils % (auto) 61.3 %; Platelet Count 132 K/uL (130-400); RDW Coefficient of Variation 13.8 % (11.5-14.5); RDW Standard Deviation 45.7 fL (36.4-46.3); Red Blood Count 4.28 M/uL (4.70-6.10)
[2024-06-06 12:30] LABS: Albumin Globulin Ratio 1.8 (0.9-2); Albumin Level 3.6 gm/dl (3.4-5.0); BUN Creatinine Ratio 7.1 (10-20); Bilirubin,Total 0.7 mg/dl (0.2-1.0); Calcium 9.1 mg/dl (8.6-10.3); Creatinine Clr Calc Pharmacy 101.7 ml/min; Potassium 4.2 mmol/L (3.5-5.1); Total Protein 5.6 gm/dl (6.0-8.3)
[2024-06-06] MEDS ORDERED: ATROPINE SULFATE 0.1 MG/ML 10ML SYR IV PRN (12:34)
[2024-06-06] MEDS ORDERED: ePHEDrine sulfate 50 MG/ML AMP IV PRN (12:34)
[2024-06-06] MEDS: fentaNYL citrate PF 100 MCG/2 ML VIAL IV PRN (12:40)
--- NOTE | 2024-06-06 13:41 | Anesthesiology Progress Note ---
Date of Service June 06, 2024 Anesthesia Post Procedure Vital Signs Vital Signs: Temp Pulse Pulse Resp BP Pulse Ox O2 Del Method 06/06/24 13:30 74 16 129/74 98 Room Air 06/06/24 13:15 67 12 121/65 97 Room Air 06/06/24 13:00 66 12 106/65 95 Room Air 06/06/24 12:45 69 19 132/82 98 Room Air 06/06/24 12:35 70 13 121/77 98 Room Air 06/06/24 12:25 69 13 117/69 100 Room Air 06/06/24 12:15 71 13 131/75 98 Room Air 06/06/24 12:05 68 20 121/72 97 Room Air 06/06/24 11:55 36.4 C L 69 14 129/83 97 Room Air 06/06/24 11:45 36.4 C L 74 14 134/79 99 Room Air 06/06/24 11:35 65 12 129/81 100 Oxymask 06/06/24 11:25 63 14 128/77 100 Oxymask 06/06/24 11:15 36.1 C L 73 12 145/86 H 100 Oxymask 06/06/24 08:23 Room Air 06/06/24 08:23 36.4 C L 81 22 132/66 99 Room Air O2 Flow Rate 06/06/24 13:30 06/06/24 13:15 06/06/24 13:00 06/06/24 12:45 06/06/24 12:35 06/06/24 12:25 06/06/24 12:15 06/06/24 12:05 06/06/24 11:55 06/06/24 11:45 06/06/24 11:35 4 06/06/24 11:25 4 06/06/24 11:15 6 06/06/24 08:23 06/06/24 08:23 Pain Intensity Penis: Pain Intensity: 6 Transfer of Care Handoff Completed per policy Notes Mental Status: alert / awake / arousable Patient Amnestic to Procedure: Yes Nausea / Vomiting: adequately controlled Pain: adequately controlled Airway Patency, RR, SpO2: stable & adequate BP & HR: stable & adequate Hydration State: stable & adequate Anesthetic Complications: no major complications apparent and Pt Satisfied with anesthetic care
[2024-06-06] MEDS: oxyCODONE/ACETAMINOPHEN 5mg/325mg TAB PO PRN (15:08)
[2024-06-06] MEDS: CIPROFLOXACIN / D5W 400 MG/200 ML BAG IV SCH ×2 (15:21→20:05)
[2024-06-06] MEDS: fentaNYL citrate PF 100 MCG/2 ML VIAL ONE (15:22)
[2024-06-06] MEDS: DOCUSATE SODIUM 100 MG CAP PO SCH (15:22)
--- NOTE | 2024-06-06 15:53 | Hospitalist Consultation ---
Date of Consultation June 06, 2024 Assessment & Plan (1) Bladder outlet obstruction: s/p cystoscopy w/ TURP, TURBT, small incision of bladder neck, fulguration of bladder ulcer, FB removal, and evacuation of bladder by Dr. Pereira 06/06. Pain management, bowel regimen, DVT prophylaxis per primary team. Diet switched to regular at patient request. Pyridium prn x 3 days On Finasteride and Alfuzosin outpatient. CBC reviewed 06/06: stable. BMP reviewed 06/06: stable. Per Dr. Pereira, patient safe to resume Eliquis and Plavix this evening 06/06. AM CBC, BMP (2) DVT (deep venous thrombosis): patient recently diagnosed w/ LLE DVT on 05/13 started on Eliquis outpatient. resumed. continue to monitor for ongoing symptoms. (3) Seizure-like activity: continue lamotrigine as prescribed (4) COPD (chronic obstructive pulmonary disease): continue home inhalers. pt w/ hx of sleep apnea and documentation states he cannot tolerate CPAP. Plan Chronic conditions: Neuropathy: gabapentin GERD: Pepcid, pantoprazole RLS: ropinirole thiamin deficiency: thiamine Insomnia: melatonin hx CVA: Plavix resumed. DVT prophylaxis: Eliquis Diet: regular Code status: full Disposition: tele Supervising Physician Co-Signing Physician Notes During face to face encounter, I obtained a History and physical examination, discussed plan of care with patient. I discussed plan of care with DIAMOND Turner. I reviewed above note and agree with it except for the following: Patient is being consulted for management of medicla comorbidities. Resumed anticoagulants for DVT. History of Present Illness Attending Physician: Fran Greene, II, DO History of Present Illness This is a 64 year old gentleman with past medical history of seizures, neuropathy, b/l carotid artery stenosis, DVT, hx CVA, COPD, GERD who presented to the hospital on 06/06 for an elective cystoscopy w/ Dr. Pereira. Patient has had recent hospitalizations including a hospital stay at [facility] for a syncopal episode, DVT, orthostatic hypotension, UTI, aspiration PN, right LE cellulitis, and dehydration. He completed a course of azithromycin, prednisone. Was on Cefdinir recently as well. He was started on Eliquis for his LLE DVT. He has hx of CVA and takes Plavix daily as well. His BP medications have been on hold outpatient due to hypotension. Today he was seen and examined at bedside. Patient reported penile discomfort following his procedure today. Prior to my visit, the patient was given some pain medication. He is also concerned about the color of his urine. Patient denies any CP or SOB. He reports he is also not a T2 DM and is requesting his diet be changed. He states that he is allowed to eat whatever he wants. Denies any dizziness or lightheadedness. Allergies Allergy/AdvReac Type Severity Reaction Status Date / Time Sulfa (Sulfonamide Allergy Unknown Hives Verified 06/06/24 08:05 Antibiotics) Home Medications Medication Instructions Recorded Confirmed Type acetaminophen 325 mg capsule 325 mg PO QID PRN Pain 11/20/23 06/06/24 History (Tylenol) albuterol sulfate 90 mcg/actuation 2 inh inhalation QID PRN SOB 11/20/23 06/06/24 History aerosol inhaler (Ventolin HFA) alfuzosin 10 mg tablet,extended 10 mg PO QAM 11/20/23 06/06/24 History release 24 hr ascorbic acid (vitamin C) 250 mg 250 mg PO Q OTHER DAY 11/20/23 06/06/24 History tablet aspirin 81 mg tablet,delayed 81 mg PO QAM 11/20/23 06/06/24 History release (Adult Aspirin Regimen) atorvastatin 40 mg tablet 40 mg PO QPM 11/20/23 06/06/24 History azelastine 137 mcg (0.1 %) nasal 1 spray intranasal BID PRN 11/20/23 06/06/24 History spray Congestion baclofen 10 mg tablet 10 mg PO QID 11/20/23 06/06/24 History cholecalciferol (vitamin D3) 125 125 mcg PO QDL 11/20/23 06/06/24 History mcg (5,000 unit) capsule clopidogrel 75 mg tablet (Plavix) 75 mg PO QPM 11/20/23 06/06/24 History empagliflozin 10 mg tablet 10 mg PO QAM heart 11/20/23 06/06/24 History (Jardiance) ferrous gluconate 324 mg (37.5 mg 324 mg PO Q2D 11/20/23 06/06/24 History iron) tablet finasteride 5 mg tablet 5 mg PO QAM 11/20/23 06/06/24 History fluticasone furoate 100 1 inh inhalation UD PRN SOB 11/20/23 06/06/24 History mcg-vilanterol 25 mcg/dose inhalation powder (Breo Ellipta) fluticasone propionate 50 1 spray intranasal DAILY 11/20/23 06/06/24 History mcg/actuation nasal spray,suspension folic acid 1 mg tablet 1 mg PO QDL 11/20/23 06/06/24 History ipratropium bromide 21 mcg (0.03 2 spray intranasal BID PRN 11/20/23 06/06/24 History %) nasal spray Congestion ketoconazole 2 % topical cream 1 applic topical DAILY PRN Skin 11/20/23 06/06/24 History Irritation loratadine 10 mg tablet (Claritin) 10 mg PO QAM 11/20/23 06/06/24 History melatonin 5 mg capsule 5 mg PO HS 11/20/23 06/06/24 History multivitamin 1 tab PO QAM 11/20/23 06/06/24 History pantoprazole 40 mg tablet,delayed 40 mg PO QAM 11/20/23 06/06/24 History release thiamine HCl (vitamin B1) 50 mg 50 mg PO HS 11/20/23 06/06/24 History tablet (Vitamin B-1) famotidine 40 mg tablet 40 mg PO HS 03/03/24 06/06/24 History formoterol fumarate 20 mcg/2 mL 2 ml inhalation QAM 03/03/24 06/06/24 History solution for nebulization lamotrigine 25 mg tablet 50 mg PO BID 03/03/24 06/06/24 History magnesium 250 mg tablet 250 mg PO QPM 03/03/24 06/06/24 History potassium chloride 30 mEq/15 mL 30 meq PO QAM 03/03/24 06/06/24 History oral liquid gabapentin 400 mg capsule 400 mg PO TIDM #0 caps 04/03/24 06/06/24 Rx gabapentin 600 mg tablet 1,200 mg (2 x 600 mg) PO HS #0 tabs 04/03/24 06/06/24 Rx hydrocortisone 1 % topical ointment 1 applic EXT BID #0 grams 04/03/24 06/06/24 Rx ropinirole 1 mg tablet 1 mg PO HS #0 tabs 04/03/24 06/01/24 Rx lidocaine HCl 2 % mucosal jelly in 1 applic topical BID #250 mL 05/19/24 06/06/24 Rx applicator (Glydo) amoxicillin 500 mg-potassium 1 tab PO BID 06/01/24 06/06/24 History clavulanate 125 mg tablet (Augmentin) apixaban 5 mg tablet (Eliquis) 5 mg PO BID 06/01/24 06/06/24 History guaifenesin 200 mg capsule 200 mg PO Q4H PRN excessive mucous 06/01/24 06/06/24 History ciprofloxacin HCl 500 mg tablet 500 mg PO BID 3 days #6 tabs 06/08/24 Rx phenazopyridine 200 mg tablet 200 mg PO BID PRN pain #6 tabs 06/08/24 Rx (Pyridium) Patient History Medical History (Updated 06/08/24 @ 11:59 by LISHA Lujan) Aspiration pneumonia - during 05/13/24 [facility] admission per PCP records - treated with azithromycin and prednisone; taking cefdinir as of 05/18/24 PCP records (also had UTI and right LE cellulitis) Carotid stenosis - 04/01/22: had thrombectomy of right terminus ICA occlusion and angioplasty of right cervical ICA (after CVA) - 05/06/22- underwent right ICA stenting - 11/2022- imaging showed left chronic ICA occlusion; right ICA proximal stent patent but no flow to distal stent segment - currently has bilateral ICA occlusion with reconstitution of the left supraclinhoid ICA through collateralization per neuro records History of recent hospitalization 05/13/24 to 05/16/24- pt had near syncope at home and went to [facility]- diagnosed with hypotension- diltiazem d/c'ed but also diagnosed with left LE DVT - he was also hospitalized at [facility] and [facility] after 02/2024 REZUM procedure with fevers and dx with VRE; pt was D/C from [facility] 04/04/24 to rehab facility; pt currently living at home with caregiver and home assistance DVT (deep venous thrombosis) LLE (while on Plavix and ASA) 05/13/24; started on Eliquis Reed catheter in place Obstructive sleep apnea cannot tolerate CPAP VRE bacteremia 03/23/24 VRE on urine culture Diabetes mellitus type 2, controlled Seizure-like activity - on lamictal; first sz occurred 4/1/23; per pt's , "seems to get about every 3 months, most recent 01/07/24 that is when he was put on the lamictal" - he did have an episode while admitted (Mar 2024) but also had high fever at the time. - pt follows with stroke clinic at [facility] q6m Neuropathy Chronic anticoagulation Plavix and ASA since CVA 2021; Eliquis since LLE DVT 05/13/24 RLS (restless legs syndrome) Hypertension hx of HTN but has recently had issues with hypotension and had a near syncopal episode 05/13/24 and then was taken off of diltiazem Hx of difficult intubation many years ago at [facility] with a shoulder surgery was told they had difficulty intubating; per pt's , 'was told likely because he was a smoker and had stopped smoking prior to the surgery and his airway was irritated'; he is no longer a smoker and has not had any issues with intubation since that time BPH w urinary obs/LUTS GERD (gastroesophageal reflux disease) Hx of polycythemia vera dx listed on chart; per pt's , pt was told after multiple surgeries around 2013 that his blood was 'too thick' and he had a procedure to 'thin blood' and was monitored for a short time after that; no issues since that time Stroke 04/01/22: had thrombectomy of right terminus ICA occlusion and angioplasty of right cervical ICA; infarct progressed and patient required farshad craniotomy - now with L sided weakness (L arm very little movement and no hand strength; L leg weakness; can stand/walk short distances with assistance of person and walker); mild dysphagia; follows with stroke clinic [facility] COPD (chronic obstructive pulmonary disease) Surgical History Internal carotid artery stent present 04/2022 History of urologic surgery REZU 03/10/24: MAC without issue Hx of brain surgery 2021, craniectomy with thrombectomy, [facility] Hx of craniotomy 2021, [facility] Hx of colonoscopy Hx of arthroscopy of shoulder x2, left Hx of rotator cuff surgery left, open procedure Hx of cervical spine surgery in the early ; ROM "is a little limited since stroke but was not limited prior to stroke from this sx" Hx of lumbosacral spine surgery late , L5 Hx of tonsillectomy Social History Smoking Status: Former smoker Tobacco Type: Cigarettes Second Hand Exposure: No; Do You Dip or Chew Tobacco: No; Hx Alcohol Use: No Hx Substance Use: No Preferred Language: Maori Communication Ability: Effective Visual Impairment: No Limitations Tailer In Required: No Beliefs That Will Affect Care: None Current Living Situation: Spouse Current Living Situation Comment: Was from home living with then had the REZUM procedure then to Rehab Feels Safe at Home: Yes Assistive Devices: Bedside Commode, Lift Chair, Stair Lift, Walker and Wheelchair Physical Exam Constitutional: WD/WN, vitals as above Eyes: PERRL, conjunctivae normal, anicteric sclerae Respiratory: normal respiratory effort, lungs clear to auscultation Cardiovascular: RRR, no murmur, no edema Psychiatric: A+Ox3, euthymic affect Results & Data Results & Data Vital Signs (Past 12 Hours) Vital Signs Temp Pulse Pulse Resp BP Pulse Ox O2 Del Method 06/06/24 14:45 36.9 C 87 19 124/78 97 Room Air 06/06/24 14:35 36.8 C 89 19 124/76 97 Room Air 06/06/24 14:15 36.4 C L 76 18 121/68 97 Room Air 06/06/24 13:45 79 18 128/76 98 Room Air 06/06/24 13:30 74 16 129/74 98 Room Air 06/06/24 13:15 67 12 121/65 97 Room Air 06/06/24 13:00 66 12 106/65 95 Room Air 06/06/24 12:45 69 19 132/82 98 Room Air 06/06/24 12:35 70 13 121/77 98 Room Air 06/06/24 12:25 69 13 117/69 100 Room Air 06/06/24 12:15 71 13 131/75 98 Room Air 06/06/24 12:05 68 20 121/72 97 Room Air 06/06/24 11:55 36.4 C L 69 14 129/83 97 Room Air 06/06/24 11:45 36.4 C L 74 14 134/79 99 Room Air 06/06/24 11:35 65 12 129/81 100 Oxymask 06/06/24 11:25 63 14 128/77 100 Oxymask 06/06/24 11:15 36.1 C L 73 12 145/86 H 100 Oxymask 06/06/24 08:23 Room Air 06/06/24 08:23 36.4 C L 81 22 132/66 99 Room Air O2 Flow Rate 06/06/24 14:45 06/06/24 14:35 06/06/24 14:15 06/06/24 13:45 06/06/24 13:30 06/06/24 13:15 06/06/24 13:00 06/06/24 12:45 06/06/24 12:35 06/06/24 12:25 06/06/24 12:15 06/06/24 12:05 06/06/24 11:55 06/06/24 11:45 06/06/24 11:35 4 06/06/24 11:25 4 06/06/24 11:15 6 06/06/24 08:23 06/06/24 08:23 PG Care Time/CCT Total # of Minutes Spent Total Time Spent with Patient: Total time spent is greater than 50% in coordination of care (as documented) at patient's floor/unit and/or counseling patient: Coding Level of Care Code 95870 IN/OBS CONSULT LVL 3,45M Diagnoses Bladder outlet obstruction N32.0 DVT (deep venous thrombosis) I82.409 Seizure-like activity R56.9 COPD (chronic obstructive pulmonary disease) J44.9
[2024-06-06] MEDS: PHENAZOPYRIDINE HCL 200 MG TAB PO PRN (16:51)
[2024-06-06] MEDS: GABAPENTIN 400 MG CAP PO SCH (16:52)
[2024-06-06] MEDS: BACLOFEN 10 MG TAB PO SCH (16:52)
[2024-06-06] MEDS: CLOPIDOGREL BISULFATE 75 MG TAB PO SCH (20:06)
[2024-06-06] MEDS: MELATONIN 3 MG TAB PO SCH (20:06)
[2024-06-06] MEDS: APIXABAN 5 MG TABLET PO SCH (20:07)
[2024-06-06] MEDS: MAGNESIUM OXIDE 400 MG TAB PO SCH (20:08)
[2024-06-06] MEDS: lamoTRIgine 25 MG TAB PO SCH (20:08)
[2024-06-06] MEDS: rOPINIRole HCL 1 MG TABLET PO SCH (20:08)
[2024-06-06] MEDS: THIAMINE HCL 50 MG TABLET PO SCH (20:09)
[2024-06-06] MEDS: FAMOTIDINE 40 MG TABLET PO SCH (20:10)
[2024-06-06] MEDS: GABAPENTIN 600 MG TAB PO SCH (20:10)
[2024-06-06] MEDS ORDERED: LIDOCAINE 2% JELLY 5 ML TUBE EXT PRN (21:00)
[2024-06-07] MEDS: FORMOTEROL 20 MCG/2 ML VIAL INH SCH (05:55)
[2024-06-07 06:33] LABS: Hematocrit (blood only) 40.7 % (42.0-52.0); Hemoglobin 14.1 g/dl (14.0-18.0); Mean Corpuscular Hemoglobin 31.1 pg (25.0-34.0); Mean Corpuscular Hgb Conc 34.6 g/dL (32.0-36.0); Mean Corpuscular Volume 89.6 fL (80.0-100.0); Mean Platelet Volume 10.5 fL (9.4-12.4); Platelet Count 151 K/uL (130-400); RDW Coefficient of Variation 13.8 % (11.5-14.5); RDW Standard Deviation 45.1 fL (36.4-46.3); Red Blood Count 4.54 M/uL (4.70-6.10); White Blood Count 7.35 K/ul (4.8-10.8)
[2024-06-07 06:51] LABS: BUN Creatinine Ratio 11.2 (10-20); Calcium 9.3 mg/dl (8.6-10.3); Potassium 4.2 mmol/L (3.5-5.1)
[2024-06-07] MEDS: TAMSULOSIN HCL 0.4 MG CAP PO SCH (09:35)
[2024-06-07] MEDS: LORATADINE 10 MG TAB PO SCH (09:35)
[2024-06-07] MEDS: PANTOprazole 40 MG TAB PO SCH (09:35)
[2024-06-07] MEDS: FINASTERIDE 5 MG TAB PO SCH (09:35)
[2024-06-07] MEDS: MULTIVITAMIN TAB PO SCH (09:36)
[2024-06-07] MEDS: POTASSIUM CHLORIDE 20 MEQ/15 ML UDC PO SCH (09:36)
[2024-06-07] MEDS: FLUTICASONE PROPIONATE NA SPR 16 GM BTL NAE SCH (09:37)
[2024-06-07] MEDS: CASPOFUNGIN 50 MG in SODIUM CHLORIDE 0.9% 250 ML IV SCH (11:16)
--- NOTE | 2024-06-07 11:36 | Urology Progress Note ---
Date of Service June 07, 2024 Assessment & Plan (1) Bladder outlet obstruction: (2) Acute urinary retention: Plan -POD #1 s/p Cystoscopy with TURP, TURBT, incision of bladder neck, Fulguration of bladder ulcer, Foreign body removal and Evacuation of Bladder, and Instillati on of Medication into Bladder -Afebrile with stable vitals -Labs today show no leukocytosis and normal renal function -Reed intact and draining orange colored urine with Amphotericin CBI running slow rate Plan: -Maintain Reed catheter and continue Amphotericin CBI -Continue antibiotics/antifungals -Encourage OOB/ambulation -Continue supportive care and pain management as needed -Hospital medicine following, appreciate assistance. Anticoagulation resumed 06/06. -Will plan for continued monitoring tonight with possible discharge home tomorrow pending patient progression Admission and Anticipated Discharge Date Admission Date: June 06, 2024 Subjective POD #1 Pt seen at bedside this AM Awake and resting in bed on arrival No acute distress at bedside Feels fatigued this morning Reports discomfort around catheter insertion site No fevers Tolerating diet Reed intact and draining orange colored urine - continues on Ampho CBI Review of Systems Constitutional: as per Subjective / HPI Genitourinary: + as per Subjective / HPI Physical Exam Constitutional: no acute distress Appears fatigued Respiratory: no respiratory distress and no labored breathing Neurologic: awake Psychiatric: Orientation: alert, oriented x 3 and cooperative Genitourinary: Reed intact w/CBI Results & Data Vital Signs (Past 12 Hours) Vital Signs Temp Pulse Pulse Resp BP Pulse Ox O2 Del Method 06/07/24 07:46 36.8 C 90 16 119/76 97 Room Air 06/07/24 07:00 83 06/07/24 05:59 86 16 95 Room Air 06/07/24 04:00 36.5 C 90 16 107/65 93 Room Air 06/06/24 23:55 36.7 C 90 16 104/60 92 Room Air PG Care Time/CCT Total # of Minutes Spent Total Time Spent with Patient: Total time spent is greater than 50% in coordination of care (as documented) at patient's floor/unit and/or counseling patient: Coding Level of Care Code 13148 SUB INP/OBS CARE 2/35MIN Diagnoses Bladder outlet obstruction N32.0 Acute urinary retention R33.8
--- NOTE | 2024-06-07 13:43 | Hospitalist Progress Note ---
Date of Service June 07, 2024 Assessment & Plan (1) Bladder outlet obstruction: Plan: s/p cystoscopy w/ TURP, TURBT, small incision of bladder neck, fulguration of bladder ulcer, FB removal, and evacuation of bladder by Dr. Pereira 06/06. Pain management, bowel regimen, DVT prophylaxis per primary team. Diet switched to regular at patient request. Pyridium prn x 3 days On Finasteride and Alfuzosin outpatient. CBC reviewed 06/07: stable. BMP reviewed 06/07: stable. Per Dr. Pereira, patient safe to resume Eliquis and Plavix 06/06. (2) DVT (deep venous thrombosis): Plan: patient recently diagnosed w/ LLE DVT on 05/13 started on Eliquis outpatient. resumed. continue to monitor for ongoing symptoms. (3) Seizure-like activity: Plan: continue lamotrigine as prescribed seizure like activity 06/07 per patient prolactin drawn after - WNL. No post ictal state observed. seizure unlikely, patient is compliant w/ his medications. (4) COPD (chronic obstructive pulmonary disease): Plan: continue home inhalers. pt w/ hx of sleep apnea and documentation states he cannot tolerate CPAP. Plan Chronic conditions: Neuropathy: gabapentin GERD: Pepcid, pantoprazole RLS: ropinirole thiamin deficiency: thiamine Insomnia: melatonin hx CVA: Plavix resumed. DVT prophylaxis: Eliquis Diet: regular Code status: full Disposition: tele From a medical standpoint, the patient is safe for discharge. Admission and Anticipated Discharge Date Admission Date: June 06, 2024 Subjective Patient seen and examined this morning. Patient reports he felt he had a seizure this AM. States that he had an episode of shaking. no staff observed this enc ounter but nursing states after they were notified he was AxOx4 w/ normal VS. He denies any additional complaints. Physical Exam Constitutional: WD/WN, vitals as above Eyes: PERRL, conjunctivae normal, anicteric sclerae Respiratory: breathing unlabored Cardiovascular: well perfused Psychiatric: A+Ox3, euthymic affect Results & Data Results & Data Vital Signs (Past 12 Hours) Vital Signs Temp Pulse Pulse Resp BP Pulse Ox O2 Del Method 06/07/24 11:23 36.8 C 95 H 20 113/70 92 Room Air 06/07/24 07:46 36.8 C 90 16 119/76 97 Room Air 06/07/24 07:00 83 06/07/24 05:59 86 16 95 Room Air 06/07/24 04:00 36.5 C 90 16 107/65 93 Room Air PG Care Time/CCT Total # of Minutes Spent Total Time Spent with Patient: Total time spent is greater than 50% in coordination of care (as documented) at patient's floor/unit and/or counseling patient: Coding Level of Care Code 19526 SUB INP/OBS CARE 2/35MIN Diagnoses Bladder outlet obstruction N32.0 DVT (deep venous thrombosis) I82.409 Seizure-like activity R56.9 COPD (chronic obstructive pulmonary disease) J44.9
--- NOTE | 2024-06-08 09:55 | Urology Progress Note ---
Date of Service June 08, 2024 Assessment & Plan (1) Bladder outlet obstruction: (2) Acute urinary retention: Plan -POD #2 s/p Cystoscopy with TURP, TURBT, incision of bladder neck, Fulguration of bladder ulcer, Foreign body removal and Evacuation of Bladder, and Instillati on of Medication into Bladder -Afebrile with stable vitals -Labs today reviewed- WBC 7.71, Hgb 13.1, Creatinine 0.86 -Reed intact and draining orange colored urine. Plan: -Maintain Reed catheter -Continue antibiotics/antifungals -Encourage OOB/ambulation -Continue supportive care and pain management as needed -Discussed with hospital team- ok for discharge from their standpoint -Will reassess later today with possible discharge home this afternoon pending patient progression - Pt reassessed this afternoon - Feeling well and eager to go home - Remains afebrile with stable vitals - Reed draining clear yellow urine - Patient has been OOB to BSC and ambulated to bedside chair with 's assistance - Patient and requesting to be discharged - Pt stable for d/c home with Reed catheter - Discharge instructions reviewed, all questions were answered Admission and Anticipated Discharge Date Admission Date: June 06, 2024 Subjective POD #2 Pt seen at bedside this AM Awake and resting in bed on arrival No acute distress at bedside Overall feeling better today, was able to get some sleep. Ered draining orange colored urine. Pt completed x 2 bags of Ampho CBI. No fevers Review of Systems Constitutional: as per Subjective / HPI Genitourinary: + as per Subjective / HPI Physical Exam Constitutional: no acute distress Respiratory: no respiratory distress and no labored breathing Neurologic: awake Psychiatric: Orientation: alert, oriented x 3 and cooperative Genitourinary: Reed intact Results & Data Vital Signs (Past 12 Hours) Vital Signs Temp Pulse Pulse Resp BP Pulse Ox O2 Del Method 06/08/24 08:11 36.9 C 87 18 114/74 94 Room Air 06/08/24 07:58 87 06/08/24 07:15 86 16 91 Room Air 06/08/24 03:20 37.0 C 92 H 20 107/67 92 Room Air 06/08/24 00:13 37.2 C 95 H 20 98/59 L 93 Room Air 06/08/24 00:10 Room Air 06/07/24 21:55 95 H PG Care Time/CCT Total # of Minutes Spent Total Time Spent with Patient: Total time spent is greater than 50% in coordination of care (as documented) at patient's floor/unit and/or counseling patient: Coding Level of Care Code 80410 SUB INP/OBS CARE 2/35MIN Diagnoses Bladder outlet obstruction N32.0 Acute urinary retention R33.8
[2024-06-08 10:33] LABS: BUN Creatinine Ratio 16.3 (10-20); Calcium 8.9 mg/dl (8.6-10.3); Creatinine Clr Calc Pharmacy 99.4 ml/min; Potassium 3.9 mmol/L (3.5-5.1)
[2024-06-08 10:48] LABS: Basophils # (auto) 0.04 K/uL (0.00-0.20); Basophils % (auto) 0.5 %; Eosinophils # (auto) 0.54 K/uL (0.00-0.50); Hematocrit (blood only) 38.2 % (42.0-52.0); Hemoglobin 13.1 g/dl (14.0-18.0); Immature Granulocytes # (auto) 0.04 K/uL (0.01-0.20); Immature Granulocytes % (auto) 0.5 %; Lymphocytes # (auto) 1.14 K/uL (1.20-3.40); Lymphocytes % (auto) 14.8 %; Mean Corpuscular Hgb Conc 34.3 g/dL (32.0-36.0); Mean Corpuscular Volume 90.5 fL (80.0-100.0); Monocytes # (auto) 0.65 K/uL (0.11-0.59); Monocytes % (auto) 8.4 %; Neutrophils % (auto) 68.8 %; Platelet Count 150 K/uL (130-400); RDW Coefficient of Variation 13.7 % (11.5-14.5); RDW Standard Deviation 45.1 fL (36.4-46.3); Red Blood Count 4.22 M/uL (4.70-6.10); White Blood Count 7.71 K/ul (4.8-10.8)
[2024-06-08] MEDS ORDERED: POLYETHYLENE (MIRALAX) 17 GM PACK PO PRN (13:07)
--- NOTE | 2024-06-08 13:14 | Hospitalist Progress Note ---
Date of Service June 08, 2024 Assessment & Plan (1) Bladder outlet obstruction: Plan: s/p cystoscopy w/ TURP, TURBT, small incision of bladder neck, fulguration of bladder ulcer, FB removal, and evacuation of bladder by Dr. Pereira 06/06. Pain management, bowel regimen, DVT prophylaxis per primary team. Diet switched to regular at patient request. Pyridium prn x 3 days On Finasteride and Alfuzosin outpatient. CBC reviewed 06/08: stable. BMP reviewed 06/08: stable. Per Dr. Pereira, patient safe to resume Eliquis and Plavix 06/06. (2) DVT (deep venous thrombosis): Plan: patient recently diagnosed w/ LLE DVT on 05/13 started on Eliquis outpatient. resumed. continue to monitor for ongoing symptoms. (3) Seizure-like activity: Plan: continue lamotrigine as prescribed seizure like activity 06/07 per patient prolactin drawn after - WNL. No post ictal state observed. seizure unlikely, patient is compliant w/ his medications. (4) COPD (chronic obstructive pulmonary disease): Plan: continue home inhalers. pt w/ hx of sleep apnea and documentation states he cannot tolerate CPAP. Plan Chronic conditions: Neuropathy: gabapentin GERD: Pepcid, pantoprazole RLS: ropinirole thiamin deficiency: thiamine Insomnia: melatonin hx CVA: Plavix resumed. DVT prophylaxis: Eliquis Diet: regular Code status: full Disposition: tele Discussed care w/ at bedside 06/08. From a medical standpoint, the patient is safe for discharge. At this time the hospital medicine team will sign off. Please call us back with questions or concerns. Admission and Anticipated Discharge Date Admission Date: June 06, 2024 Subjective Patient seen and examined this morning. Patient doing well from a medical standpoint. His states he has been sleeping a lot. Patient states he is tired and has been woken up multiple times throughout the night. He is looking forward to going home as his family is in for Thanksgiving. Patient's would like him to ambulate in the halls prior to d/c. Physical Exam Constitutional: WD/WN, vitals as above Eyes: PERRL, conjunctivae normal, anicteric sclerae Respiratory: breathing unlabored Cardiovascular: well perfused Psychiatric: A+Ox3, euthymic affect Results & Data Results & Data Vital Signs (Past 12 Hours) Vital Signs Temp Pulse Pulse Resp BP Pulse Ox O2 Del Method 06/08/24 12:00 36.7 C 92 H 18 116/68 92 Room Air 06/08/24 08:11 36.9 C 87 18 114/74 94 Room Air 06/08/24 07:58 87 06/08/24 07:15 86 16 91 Room Air 06/08/24 03:20 37.0 C 92 H 20 107/67 92 Room Air PG Care Time/CCT Total # of Minutes Spent Total Time Spent with Patient: Total time spent is greater than 50% in coordination of care (as documented) at patient's floor/unit and/or counseling patient: Coding Level of Care Code 81145 SUB INP/OBS CARE 2/35MIN Diagnoses Bladder outlet obstruction N32.0 DVT (deep venous thrombosis) I82.409 Seizure-like activity R56.9 COPD (chronic obstructive pulmonary disease) J44.9
[2024-06-08 15:36] VITALS: BP 103/63; RESP 20; TEMP 98.6; O2SAT 93
[2024-06-08 17:06] VITALS: PULSE 87
--- NOTE | 2024-06-16 07:55 | Discharge Summary ---
Date of Service June 16, 2024 Admission HPI Per Admitting Provider See H&P Admission Exam Per Admitting Provider See H&P Principal Diagnosis Bladder obstruction Discharge Exam General: Alert in no acute distress. HEENT: Normocephalic Atraumatic. Inspection normal. Psychologic: Normal affect. Skin: [place] and Dry. No rashes or visible lesions. Abdomen: Soft Non-distended. No rebound or guarding. Discharge Data Allergies Allergy/AdvReac Type Severity Reaction Status Date / Time Sulfa (Sulfonamide Allergy Unknown Hives Verified 06/06/24 08:05 Antibiotics) Consultations 06/06/24 08:16 Consult Hospitalist Routine Procedures Performed Operation Date: 06/06/24 09:45 Actual Procedures p TURP (Transurethral Resection Prostate), (Not Applicable) - Fran Greene DO s Evacuation of Bladder, Instillation of Medication into Bladder, TURBT (Tra nsurethral Resection of Bladder Tumor)(Not Applicable) - Fran Greene DO Hospital Course (1) Bladder outlet obstruction: (2) Acute urinary retention: Plan -POD #2 s/p Cystoscopy with TURP, TURBT, incision of bladder neck, Fulguration of bladder ulcer, Foreign body removal and Evacuation of Bladder, and Instill ation of Medication into Bladder -Afebrile with stable vitals -Labs today reviewed- WBC 7.71, Hgb 13.1, Creatinine 0.86 -Reed intact and draining orange colored urine. Plan: -Maintain Reed catheter -Continue antibiotics/antifungals -Encourage OOB/ambulation -Continue supportive care and pain management as needed -Discussed with hospital team- ok for discharge from their standpoint -Will reassess later today with possible discharge home this afternoon pending patient progression - Pt reassessed this afternoon - Feeling well and eager to go home - Remains afebrile with stable vitals - Reed draining clear yellow urine - Patient has been OOB to BSC and ambulated to bedside chair with 's assistance - Patient and requesting to be discharged - Pt stable for d/c home with Reed catheter - Discharge instructions reviewed, all questions were answered Total Time Total Time Spent Total Time Spent (In Minutes): 10 minutes Total Time Includes: Examination of the Patient, Discharge Planning, Medication Reconciliation and Communication With Other Providers Discharge Plan Discharge Items Patient Disposition: Home - Home Health Services Reason For Visit: BPH WITH OBSTRUCTION Discharge Diagnosis: BPH with obstruction Activity: Per Instructions section Bathing Comment: Ok to shower. No tub baths or soaks. Non-emergency contact: Surgeon and Urologist Call non-emergency contact if: you have any medication questions, your symptoms worsen, your pain is not controlled and you have a fever Follow-up/Referrals: Celina Elizondo DO [Primary Care Provider] - [facility],Nurse [FAKE FOR SCHEDULES] - 06/20/24 10:00 am Diet: Regular Addtl Attending Provider Instructions: Please take all medications as prescribed and keep all follow-ups as scheduled. Please call our office at [phone] with any questions, concerns or need to reschedule appointments for any reason. We are happy to assist you. An antibiotic was sent to your pharmacy, please take as directed. Pyridium was also sent to your pharmacy to take as needed for bladder pain and burning. This will turn your urine bright orange. Tips for your recovery at home: Dont be alarmed by brownish or reddish blood or clots in your urine. This is a result of the procedure. This may occur off and on for weeks to months after the procedure but should continue to improve. Drink plenty of fluids during the day (enough to keep your urine very light colored). This will help keep a healthy flow of urine. Do not lift >25 lbs until your followup Avoid constipation. Please use a stool softener (Colace) for the first two weeks after your procedure Be sure to finish the antibiotics as prescribed. If you go home with a catheter, please wash tubing where it enters your body twice daily with mild soap (Dove or Dial). Once your catheter is removed, expect some blood in your urine and some burning when you urinate. You should have an appointment to have this removed, if you do not please call our office to arrange. When to call [facility] at [phone]: Chest pain or trouble breathing (call 911 or go to the hospital) Your urine contains heavy blood clots or your catheter stops draining You are constantly leaking urine Fever of 101F or higher, chills, nausea, or vomiting Your pain is not relieved with medication Pending Studies at Discharge: Yes Stand-Alone Forms: My NextDocs, Smoking Cessation Medications and DC Order Prescriptions: New phenazopyridine [Pyridium] 200 mg tablet 200 mg PO BID PRN (Reason: pain) Qty: 6 0RF Continued lidocaine HCl [Glydo] 2 % jelly in applicator 1 applic topical BID Qty: 250 3RF Rx Instructions: to place catheter loratadine [Claritin] 10 mg tablet 10 mg PO QAM baclofen 10 mg tablet 10 mg PO QID aspirin [Adult Aspirin Regimen] 81 mg tablet,delayed release (DR/EC) 81 mg PO QAM folic acid 1 mg tablet 1 mg PO QDL pantoprazole 40 mg tablet,delayed release (DR/EC) 40 mg PO QAM finasteride 5 mg tablet 5 mg PO QAM alfuzosin 10 mg tablet extended release 24 hr 10 mg PO QAM Rx Instructions: administer after the same meal each day Jardiance 10 mg tablet 10 mg PO QAM clopidogrel [Plavix] 75 mg tablet 75 mg PO QPM atorvastatin 40 mg tablet 40 mg PO QPM Hold Instructions: Resume on 04/07/24. hold while on daptomycin ferrous gluconate 324 mg (37.5 mg iron) tablet 324 mg PO Q2D ascorbic acid (vitamin C) 250 mg tablet 250 mg PO Q OTHER DAY Rx Instructions: in evening with iron supplement cholecalciferol (vitamin D3) 125 mcg (5,000 unit) capsule 125 mcg PO QDL Patient Comments: noon thiamine HCl (vitamin B1) [Vitamin B-1] 50 mg tablet 50 mg PO HS melatonin 5 mg capsule 5 mg PO HS multivitamin Tablet 1 tab PO QAM fluticasone propionate 50 mcg/actuation spray,suspension 1 spray intranasal DAILY Rx Instructions: administer into each nostril ipratropium bromide 21 mcg (0.03 %) spray,non-aerosol 2 spray intranasal BID PRN (Reason: Congestion) Rx Instructions: administer into each nostril azelastine 137 mcg (0.1 %) aerosol,spray 1 spray intranasal BID PRN (Reason: Congestion) Rx Instructions: administer into each nostril ketoconazole 2 % cream 1 applic topical DAILY PRN (Reason: Skin Irritation) fluticasone furoate-vilanterol [Breo Ellipta] 100-25 mcg/dose blister with device 1 inh inhalation UD PRN (Reason: SOB) albuterol sulfate [Ventolin HFA] 90 mcg/actuation HFA aerosol inhaler 2 inh inhalation QID PRN (Reason: SOB) acetaminophen [Tylenol] 325 mg capsule 325 mg PO QID PRN (Reason: Pain) famotidine 40 mg Tablet 40 mg PO HS lamotrigine 25 mg Tablet 50 mg PO BID potassium chloride 30 mEq/15 mL Liquid 30 meq PO QAM magnesium 250 mg Tablet 250 mg PO QPM formoterol fumarate 20 mcg/2 mL Solution For Nebulization 2 ml INHALATION QAM gabapentin 600 mg Tablet 1,200 mg PO HS Qty: 0 0RF ropinirole 1 mg Tablet 1 mg PO HS Qty: 0 0RF hydrocortisone 1 % Ointment 1 applic EXT BID Qty: 0 0RF Rx Instructions: for one week to seborrhea rash in [place] area gabapentin 400 mg Capsule 400 mg PO TIDM Qty: 0 0RF Eliquis 5 mg Tablet 5 mg PO BID Patient Comments: started on 05/13/24; rx for 21 days amoxicillin-pot clavulanate [Augmentin] 500-125 mg Tablet 1 tab PO BID Rx Instructions: 1 PO BID x 10 days; started on 05/26/[address] [facility] (previously D/C in error) guaifenesin 200 mg Capsule 200 mg PO Q4H PRN (Reason: excessive mucous) Patient Comments: has been taking 1 tab BID Admission Data Admit Date/Time: 06/06/24 08:16 Attending Provider: Fran Greene Admit Provider: Fran Greene Primary Care Provider: Celina Elizondo Other Providers: Hugh Sorto Other Interventions: Discharge Summary Assessment (RN) Last Done: 06/08/24 17:00 Coding Level of Care Code 01781 IN/OBS DISCH 30 MIN/LESS Diagnoses Bladder outlet obstruction N32.0 Acute urinary retention R33.8
== END 2024-06-08 17:55 | disposition home health service (06) ==
LOC: ASU 06:45 → 2W 06:45
DX: Z79.01 Long term (current) use of anticoagulants; N32.89 Other specified disorders of bladder; Z79.82 Long term (current) use of aspirin; G47.33 Obstructive sleep apnea (adult) (pediatric); I82.4Z2 Acute embolism and thrombosis of unspecified deep veins of left distal lower extremity; N40.3 Nodular prostate with lower urinary tract symptoms; R33.8 Other retention of urine; Z88.2 Allergy status to sulfonamides; B37.41 Candidal cystitis and urethritis; Z87.440 Personal history of urinary (tract) infections; Z79.84 Long term (current) use of oral hypoglycemic drugs; N13.8 Other obstructive and reflux uropathy; I10 Essential (primary) hypertension; E51.9 Thiamine deficiency, unspecified; J44.9 Chronic obstructive pulmonary disease, unspecified; G25.81 Restless legs syndrome; R56.9 Unspecified convulsions; D30.3 Benign neoplasm of bladder; Z79.899 Other long term (current) drug therapy; K21.9 Gastro-esophageal reflux disease without esophagitis; Z87.891 Personal history of nicotine dependence; E11.40 Type 2 diabetes mellitus with diabetic neuropathy, unspecified; Z79.02 Long term (current) use of antithrombotics/antiplatelets; Z86.73 Personal history of transient ischemic attack (TIA), and cerebral infarction without residual deficits; G47.00 Insomnia, unspecified